=== PATIENT | female | born 1995 | race Caucasian/White ===

== ENCOUNTER → 2017-12-11 16:10 | Outpatient (CLI) | payer BC, SELFPAY ==
[2017-12-11 18:02] LABS: Hematocrit 36.5 % (37-47); Hemoglobin 12.2 g/dl (12.0-15.0); Mean Corp Hgb Conc 33.4 g/gl (32-36); Mean Corpuscular Hgb 32.5 pg (27.0-32.0); Mean Corpuscular Volume 97.3 fL (81-99); Mean Platelet Vol. 10.7 fl (6.2-12.0); Platelet Count 262 K/mm3 (150-450); RBC Distribution Width CV 13.7 % (11.6-14.6); RBC Distribution Width SD 48.1 fl (35.1-43.9); Red Blood Count 3.75 M/mm3 (4.2-5.4); White Blood Count 9.2 K/mm3 (4.4-11.0)
[2017-12-11 18:03] LABS: Scan Indicated on CBC? Y/N NO
[2017-12-11 18:52] LABS: Glucose Challenge Gest 1H 50g 121 mg/dL (70-140)
== END ==
PROVIDERS: Visit Provider Obstetrics & Gynecology
DX: Z34.82 Encounter for supervision of other normal pregnancy, second trimester (principal)
CPT/HCPCS: 36415; 82950; 85027

== ENCOUNTER 2017-12-24 15:43 | Emergency (ER) | payer BC, OTHER, SELFPAY ==
[2017-12-24 15:44] VITALS: BP 106/58; PULSE 81; RESP 17; TEMP 36.4; O2SAT 95; BMI 32.3
--- NOTE | 2017-12-24 16:14 | ED.DCSUM_ITS ---
- ER Visit Summary Date of Service: 12/24/17 Chief Complaint: Nausea and diarrhea History of Present Illness: The patient is a [address] Barrera and Dr. Hopkins. She is a 29 weeks . She reports that she has diarrhea that began 2 days ago. She is having this 4-5 times per day. No blood in her stools or black tarry stools. She has had nausea without vomiting. She reports that she gets cramping epigastric pain approximately 30 minutes after eating and it lasts for approximately 30 minutes. It is 7 out of 10 at worst and she is pain-free currently. States this is not related to fatty food specifically. It occurs with eating anything. Patient has had sick contacts. 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 Has not been camping out of the country. No possible bad food exposure. Does not drink well water. No recent antibiotic use. Patient reports she has had normal movement. No vaginal bleeding or discharge. She has a headache that is 3 out of 10 severity and mild generalized weakness. Physical Examination: Vitals: Stable. Afebrile. General: Well-nourished and well-developed. Head: Normocephalic atraumatic. Neck: Supple, no lymphadenopathy. No JVD. Nontender. Cardiovascular: Regular rate and rhythm. No murmurs. Respiratory: No respiratory distress. Clear to auscultation bilaterally. Abdominal: Gravid uterus. Soft, mild epigastric tenderness to palpation, no right upper quadrant tenderness, nondistended, normal bowel sounds. No guarding , rebound, or peritoneal signs. Back: Nontender. Extremities: Nontender, no edema. Skin: Normal color, no rash. Neurologic: Alert and oriented ?3. Cranial nerves II through XII are intact. Normal strength and sensation. Psych: Normal affect. Test Results: BMP shows a chloride of 111 and CO2 of 20, BUN of 6 and creatinine of 0.43. Emergency Department Course and Treatment: Patient had an IV placed. She was given a liter normal saline. She was given Zofran IV. She has had no vomiting or diarrhea while here. heart tones were 128. Treatment Plan: Patient will be discharged with Zofran and instructed to push fluids. Follow-up with Dr. Hpokins in 1-2 days if not improving. Return to the emergency department for any worsening symptoms. Disposition: To home in improved and stable condition. Impression: 1. Diarrhea. 2. Dehydration. 3. Third trimester . This note was generated with [employer] dictation software. It may contain incorrect words, spelling, and punctuation that were not noted in review of the chart prior to signing ED Disposition - Plan for ED Patient: Chief Complaint: Nausea/Vomiting/Diarrhea Instructions: ED Vomiting Diarrhea Nonspecific Ad Prescriptions: Ondansetron [Zofran Odt] 4 mg PO Q8H PRN PRN #10 tablet PRN Reason: Nausea Referrals: Jay Hopkins [Primary Care Provider] - 1-2 Days if not improving
[2017-12-24] MEDS: Ondansetron 4 MG/2 ML Vial IV (16:18)
[2017-12-24] MEDS: 0.9% Normal Saline 1,000 ML 1000 ML IV (16:18)
[2017-12-24 16:49] LABS: Anion Gap 9 (5-15); BUN 6 mg/dL (7-18); BUN/Creat Ratio 13.9 RATIO (10-20); Calcium,Total 8.1 mg/dL (8.5-10.1); Chloride 111 mmol/L (98-107); Creatinine, Serum 0.43 mg/dL (0.55-1.02); EST Glomerular Filtration Rate 192 mL/min (>60); Est Glom Filt Rate - Afr Amer 232 mL/min (>60); Estimated Creatinine Clearance 160.93 ml/min; Glucose 93 mg/dL (74-106); Potassium 3.8 mmol/L (3.5-5.1); Sodium Level 140 mmol/L (136-145)
[2017-12-24 17:23] VITALS: PULSE 81; O2SAT 97
== END 2017-12-24 17:24 | disposition home or self-care (01) ==
PROVIDERS: Emergency Provider Emergency Medicine; Family Provider Family Medicine; PCP Family Medicine
DX: O99.89 Other specified diseases and conditions complicating pregnancy, childbirth and the puerperium (principal); R19.7 Diarrhea, unspecified; E86.0 Dehydration; Z3A.29 29 weeks gestation of pregnancy
CPT/HCPCS: 80048; 96361; 96374; 99283; J7030; A4216; J2405

== ENCOUNTER → 2018-02-05 16:54 | Outpatient (CLI) | payer BC, OTHER, SELFPAY ==
[2018-02-06 08:34] LABS: Group B Strep DNA By PCR Negative (Negative); Internal Control PASS; Probe Check PASS; Specimen Processing Control PASS
== END ==
PROVIDERS: Visit Provider Obstetrics & Gynecology
DX: Z36.85 Encounter for antenatal screening for Streptococcus B (principal)
CPT/HCPCS: 87081; 87653

== ENCOUNTER 2018-02-15 10:20 | Inpatient (IN) | payer BC, OTHER, SELFPAY ==
[2018-02-15 10:01] VITALS: BMI 35.4
[2018-02-15 10:18] LABS: ROM Internal Control Test YES-OK TO RESULT pt. (Internal QC); ROM Patient Test POSITIVE (Negative)
[2018-02-15] MEDS: Lactated Ringers 1,000 ML 50 ML IV ×3 (10:30→19:04)
[2018-02-15 11:09] LABS: Hematocrit 36.8 % (37-47); Hemoglobin 12.5 g/dl (12.0-15.0); Mean Corpuscular Hgb 32.3 pg (27.0-32.0); Mean Corpuscular Volume 95.1 fL (81-99); Platelet Count 225 K/mm3 (150-450); RBC Distribution Width CV 13.8 % (11.6-14.6); RBC Distribution Width SD 45.6 fl (35.1-43.9); Red Blood Count 3.87 M/mm3 (4.2-5.4); Scan Indicated on CBC? Y/N NO; White Blood Count 9.1 K/mm3 (4.4-11.0)
[2018-02-15] MEDS: Oxytocin 30 units/NS 500 ml 30 UNITS/500 ML IV.SOLN IV (12:05)
--- NOTE | 2018-02-15 16:40 | PCM.PN.BLA ---
Progress Note LABOR PROGRESS NOTE Sitting up for epidural AVSS Pitocin at 12 mIU/min EFM: 130-140s avg variability. Accels. Category I tracing IUPC placed. UC's approx q 2-3 min CX: /-2 per RN last check A/P: 37 2/7 wk SROM. Pitocin induction after SROM. Epidural placed. Continue pitocin per protocol. Anticipate
[2018-02-15] MEDS: fentaNYL-bupivacaine (epidural) 100 ML BAG EPIDURAL ×2 (16:42→20:39)
[2018-02-15] MEDS: 0.9% Saline Lock 10 ML Syringe IV (19:44)
[2018-02-15] MEDS: Ondansetron 4 MG/2 ML Vial IV (19:44)
--- NOTE | 2018-02-15 19:56 | PCM.PN.BLA ---
Progress Note LABOR PROGRESS NOTE Comfortable w/ epidural. First one one-sided and had to be replaced. This one working well. AVSS Pitocin at 10 mIU/min EFM 130-140s avg variability. Accels. Category I tracing UCs q 2-3 mins. some coupling and spacing noted CX; 5-6 at approx 1900 A/P: 37 2/7 wk SROM. Pitocin induction. Early active labor. continue pitocin. Anticipate .
--- NOTE | 2018-02-15 22:18 | PCM.PN.BLA ---
Progress Note LABOR PROGRESS NOTE Epidural in place comfortable. Sitting up high in bed AVSS Pitocin induction after SROM EFM 120-130s avg variability. Accels. UCs q 2-3 mins CX: anterior lip, 90/+1 station A/P: 37 2/7 wk SROM. Pitocin induction. UCs adequate Category I tracing. Adequate progress Continue labor.
[2018-02-16] VITALS (25 sets, daily range): BP systolic 105–155; BP diastolic 51–96; PULSE 86–110; RESP 16–107; TEMP 36.7–37.3; O2SAT 96–107
[2018-02-16] MEDS: fentaNYL-bupivacaine (epidural) 100 ML BAG EPIDURAL (01:35)
[2018-02-16] MEDS: Lactated Ringers 1,000 ML 50 ML IV (02:24)
[2018-02-16] MEDS: Mag Hydrox/Al Hydrox/Simeth 30 ML UDC PO (02:24)
--- NOTE | 2018-02-16 05:07 | PCM.DCCSEC ---
Discharge Diet: No Restrictions Discharge Activity: May not drive while taking narcotic pain medications., May Shower, May Take a Tub Bath May resume sexual activity in: 4-6 weeks Lifting Restrictions: 20 pounds Additional Activity Instructions:: Nothing in the vagina for 4-6 weeks. You may return to work/school in 6 weeks. Change Dressing in (Days):: 4 Remove Dressing in (days):: 4 Cleanse incision/area with: Soap & Water, Keep Dressing Clean & Dry Additional Instructions: If you experience any of the following, contact your healthcare provider. Bleeding that soaks a pad every hour for 2 hours Fever 100.4 or higher Unrelieved incision or abdominal pain Swelling, redness, discharge or bleeding from your incision Problems urinating (including inability to urinate or burning while urinating). Visual changes Severe headache Flu-like symptoms Pain or redness in one of both of your breasts Pain, warmth, tenderness or swelling in your legs, especially the calf area Frequent nausea and vomiting Symptoms of depression or anxiety If you experience any of the following, call 911 or go to the nearest Emergency Room. Chest pain Problems breathing Seizure activity Partial or complete paralysis of a body part, slurred speech, weakness or drooping of the face, or a sudden inability to walk or hold your balance Allergies/Adverse Reactions: Allergies No Known Allergies Allergy (Verified 12/24/17 15:47) Medications to take at Discharge Acetaminophen [Tylenol Tablet] 325 - 650 mg PO Q4H PRN PRN tablet 02/16/18 Docusate Sodium [Colace] 100 mg PO BID PRN PRN #30 cap 02/16/18 Naproxen [Naprosyn] 250 - 500 tab PO TID PRN #30 tab 02/16/18 Oxycodone [Oxyir] 5 - 10 mg PO Q6H PRN PRN 7 Days #28 tablet 02/16/18 The following prescriptions were given: Oxycodone [Oxyir] 5 - 10 mg PO Q6H PRN PRN 7 Days #28 tablet PRN Reason: Mod-Severe Pain (-08/06) Docusate Sodium [Colace] 100 mg PO BID PRN PRN #30 cap PRN Reason: Constipation Naproxen [Naprosyn] 250 - 500 tab PO TID PRN #30 tab PRN Reason: Mild-Mod Pain (1-5/10) Follow-Up: Call to make an appointment with your doctor for an incision check in 1-2 weeks. You will also need a 6 week post- follow up appointment. Please Follow Up With: Brandon Barrera MD - [phone] When: Call to make an appointment for an incision check in 2 weeks. Primary Care Physician: Jay Hopkins [Primary Care Provider] - Proposed Discharge Date: 02/19/18
--- NOTE | 2018-02-16 05:13 | DCINST_ITS ---
Discharge Diet: No Restrictions Discharge Activity: May not drive while taking narcotic pain medications., May Shower, May Take a Tub Bath May resume sexual activity in: 4-6 weeks Lifting Restrictions: 20 pounds Additional Activity Instructions:: Nothing in the vagina for 4-6 weeks. You may return to work/school in 6 weeks. Change Dressing in (Days):: 4 Remove Dressing in (days):: 4 Cleanse incision/area with: Soap & Water, Keep Dressing Clean & Dry Additional Instructions: If you experience any of the following, contact your healthcare provider. * Bleeding that soaks a pad every hour for 2 hours * Fever 100.4 or higher * Unrelieved incision or abdominal pain * Swelling, redness, discharge or bleeding from your incision * Problems urinating (including inability to urinate or burning while urinating) . * Visual changes * Severe headache * Flu-like symptoms * Pain or redness in one of both of your breasts * Pain, warmth, tenderness or swelling in your legs, especially the calf area * Frequent nausea and vomiting * Symptoms of depression or anxiety If you experience any of the following, call 911 or go to the nearest Emergency Room. * Chest pain * Problems breathing * Seizure activity * Partial or complete paralysis of a body part, slurred speech, weakness or drooping of the face, or a sudden inability to walk or hold your balance Allergies/Adverse Reactions: Allergies No Known Allergies Allergy (Verified 12/24/17 15:47) Medications to take at Discharge Acetaminophen [Tylenol Tablet] 325 - 650 mg PO Q4H PRN PRN tablet 02/16/18 Docusate Sodium [Colace] 100 mg PO BID PRN PRN #30 cap 02/16/18 Naproxen [Naprosyn] 250 - 500 tab PO TID PRN #30 tab 02/16/18 Oxycodone [Oxyir] 5 - 10 mg PO Q6H PRN PRN 7 Days #28 tablet 02/16/18 The following prescriptions were given: Oxycodone [Oxyir] 5 - 10 mg PO Q6H PRN PRN 7 Days #28 tablet PRN Reason: Mod-Severe Pain (-08/06) Docusate Sodium [Colace] 100 mg PO BID PRN PRN #30 cap PRN Reason: Constipation Naproxen [Naprosyn] 250 - 500 tab PO TID PRN #30 tab PRN Reason: Mild-Mod Pain (-03/06) Follow-Up: Call to make an appointment with your doctor for an incision check in 1-2 weeks. You will also need a 6 week post- follow up appointment. Please Follow Up With: Brandon Barrera MD - [phone] When: Call to make an appointment for an incision check in 2 weeks. Primary Care Physician: Jay Hopkins [Primary Care Provider] - Proposed Discharge Date: 02/19/18
--- NOTE | 2018-02-16 05:14 | PCM.PN.BLA ---
Progress Note LABOR PROGRESS NOTE Complete and pushing since approx -00:30 AVSS Pitocin induction after SROM EFM : category 1 tracing. 130-140s accels. UCs q 2-3 mins, with some coupling noted Cervix: complete. Vtx remains at -1 station with caput, direct OP. Vaginal starks and perineum edematous. A/P: 37 3/7 wk EGA. CPD. Category I tracing. Advised C section for CPD. Failure to descend. No further pushing planned. OB dept aware, nursing, Anesthesia. Will proceed LUIS ENRIQUE to C/S in OR two. Personnel in OR one at present for other C/S. Pitocin off. Prep for surgery to be done.
[2018-02-16] MEDS: Cefazolin 2 GM in 0.9% Normal Saline 100 ML IV (06:01)
[2018-02-16] MEDS: Oxytocin 30 units/NS 500 ml 30 UNITS/500 ML IV.SOLN 167 UNITS IV (06:22)
[2018-02-16] MEDS: Methylergonovine 0.2 MG/ML Ampul IM (06:24)
[2018-02-16] MEDS: Ketorolac 30 MG/ML Syringe IV ×3 (06:50→18:19)
[2018-02-16] MEDS: Lactated Ringers 1,000 ML 100 ML IV (08:30)
--- NOTE | 2018-02-16 16:04 | PCM.OP.BLANK ---
Operative Report Date of Procedure: 02/16/18 - 37 2/7 wk labor. CPD PROCEDURE: Primary C section Preoperative diagnosis: 37 2/7 wk EGA , labor Cephalopelvic disproportion Postop diagnosis: 37 2/7 wk EGA , labor Cephalopelvic disproportion Anesthesia: Epidural, Angeles Jernigan MD Surgeon: Clarisse Hoskins MD Cruise Agent: NESTOR Deng EBL 600 cc Complications: none Drains: Jama draining clear yellow urine Fluids: replacement LR Findings: At amniotomy, clear fluid was noted. Mcgowan viable male in vertex presentation deeply wedged into maternal pelvis. Apgars 8/9, Baby weight: 7# 1 oz There was a normal appearing uterus, fallopian tubes and ovaries bilaterally. PATH: Routine cord gases sent Narrative account: After the risks, benefits and alternatives of the procedure were reviewed with the patient, informed consent was obtained. The patient was taken to the Operating room with an IV running, an epidural catheter in place and Jama catheter in place. She was positioned on the operating table in dorsal supine position with leftward displacement of the uterus. She was briefly frog-legged for vaginal vault prep, and then repositioned to dorsal supine position with leftward displacement of the uterus, and prepped and draped in the usual sterile fashion. Once the epidural was deemed adequate, a Pfannenstiel skin incision was created using the knife . The incision was carried down to the rectus fascia using the knife. The fascia was nicked in the midline. The fascial incision was extended bilaterally using curved Moreno scissors. The superior aspect of the fascial incision was grasped with Padmini clamps and tented up and the underlying rectus abdominal muscles were dissected free. In a similar manner, the inferior aspect of the facial incision was grasped with Padmini clamps tented up and the underlying rectus abdominal muscles were dissected free. The rectus abdominis muscles were in the midline and the peritoneum was identified and entered by blunt dissection high in the incision. The peritoneum was stretched laterally and a bladder blade was inserted. The rectus abdominis muscles were very tight and a bandage scissors was used to divide the R rectus abdominis muscle further. The uterine incision was then created using Metzenbaum scissors. The operators fingertips were used to extend the uterine incision by blunt dissection in a caudad- cephalad orientation . Clear fluid was noted at amniotomy. The vertex was then delivered atraumatically through the incision with the aid of a nurse applying pressure from below. (The vaginal starks and introitus were very edematous, making this step more challenging). The OP and nares were bulb suctioned on the abdomen. There was no nuchal cord. She shoulders delivered easily. The cord was clamped x two and cut. The baby was initially with poor tone, but responded immediately to stimulation. He was handed off to the nurse awaiting delivery after briefly showing him to his parents. The placenta was then delivered. The uterus was exteriorized and cleared of clots and debris . The uterine incision was repaired with 1 Vicryl in a running locked fashion. A second imbricating layer was then placed, using 1 Monocryl in running nonlocked fashion. Excellent hemostasis was noted. At this point the uterus , fallopian tubes and ovaries were returned to the abdominal cavity. The gutters were cleared of clots and debris and the uterine incision inspected. Excellent hemostasis was noted. Jared was sprayed along the uterine incision for continued hemostasis. The peritoneal edges and rectus abdominis muscles were reapproximated in the midline using vertical mattress stitches and figure of eight stitches of 1 Vicryl . Excellent hemostasis was noted at the subfascial space Jared was dusted along this layer also. The fascia was closed in a running nonlocked fashion with Strattofix suture. The Subcutaneous fatty tissue was Bovie cauterized as needed for hemostasis. This layer was then reapproximated with a single layer of running 3-0 Vicryl to eliminate space. The skin edges were closed in a Subcuticular stitch of 4-0 Vicryl. The incision was cleansed. Cavilon, Steristrips, and a Mepilex dressing were applied to the skin . The patient was then transferred to the recovery room bed in stable condition after tolerating the procedure well. Sponge, lap, needle and instrument counts correct times two. Medications given preop and intraoperatively included: Ancef 2 gm given nascar pit crew person to the operating room. The patient also received Pitocin given IV after cord clamp, and Toradol 30 mg IV times one. Methergine 0.2 mg IM was given in the R thigh due to mild uterine atony noted of the lower uterine segment (patient had been on Pitocin during labor). The mild uterine atony responded, to bimanual massage, IV Pitocin and the Methergine give. For a complete listing of medications given preop and intraoperatively, please see the anesthesia record.
--- NOTE | 2018-02-16 16:16 | OP.PCM_ITS ---
Operative Report Date of Procedure: 02/16/18 - 37 2/7 wk labor. CPD PROCEDURE: Primary C section Preoperative diagnosis: 37 2/7 wk EGA , labor Cephalopelvic disproportion Postop diagnosis: 37 2/7 wk EGA , labor Cephalopelvic disproportion Anesthesia: Epidural, Angeles Jernigan MD Surgeon: Clarisse Hoskins MD Laboratory Veterinarian: NESTOR Deng EBL 600 cc Complications: none Drains: Jama draining clear yellow urine Fluids: replacement LR Findings: At amniotomy, clear fluid was noted. Mcgowan viable male in vertex presentation deeply wedged into maternal pelvis. Apgars 8/9, Baby weight: 7 # 1 oz There was a normal appearing uterus, fallopian tubes and ovaries bilaterally. PATH: Routine cord gases sent Narrative account: After the risks, benefits and alternatives of the procedure were reviewed with the patient, informed consent was obtained. The patient was taken to the Operating room with an IV running, an epidural catheter in place and Jama catheter in place. She was positioned on the operating table in dorsal supine position with leftward displacement of the uterus. She was briefly frog- legged for vaginal vault prep, and then repositioned to dorsal supine position with leftward displacement of the uterus, and prepped and draped in the usual sterile fashion. Once the epidural was deemed adequate, a Pfannenstiel skin incision was created using the knife . The incision was carried down to the rectus fascia using the knife. The fascia was nicked in the midline. The fascial incision was extended bilaterally using curved Moreno scissors. The superior aspect of the fascial incision was grasped with Padmini clamps and tented up and the underlying rectus abdominal muscles were dissected free. In a similar manner, the inferior aspect of the facial incision was grasped with Padmini clamps tented up and the underlying rectus abdominal muscles were dissected free. The rectus abdominis muscles were in the midline and the peritoneum was identified and entered by blunt dissection high in the incision. The peritoneum was stretched laterally and a bladder blade was inserted. The rectus abdominis muscles were very tight and a bandage scissors was used to divide the R rectus abdominis muscle further. The uterine incision was then created using Metzenbaum scissors. The operators fingertips were used to extend the uterine incision by blunt dissection in a caudad- cephalad orientation . Clear fluid was noted at amniotomy. The vertex was then delivered atraumatically through the incision with the aid of a nurse applying pressure from below. (The vaginal starks and introitus were very edematous, making this step more challenging). The OP and nares were bulb suctioned on the abdomen. There was no nuchal cord. She shoulders delivered easily. The cord was clamped x two and cut. The baby was initially with poor tone, but responded immediately to stimulation. He was handed off to the nurse awaiting delivery after briefly showing him to his parents. The placenta was then delivered. The uterus was exteriorized and cleared of clots and debris . The uterine incision was repaired with 1 Vicryl in a running locked fashion. A second imbricating layer was then placed, using 1 Monocryl in running nonlocked fashion. Excellent hemostasis was noted. At this point the uterus , fallopian tubes and ovaries were returned to the abdominal cavity. The gutters were cleared of clots and debris and the uterine incision inspected. Excellent hemostasis was noted. Jared was sprayed along the uterine incision for continued hemostasis. The peritoneal edges and rectus abdominis muscles were reapproximated in the midline using vertical mattress stitches and figure of eight stitches of 1 Vicryl . Excellent hemostasis was noted at the subfascial space Jared was dusted along this layer also. The fascia was closed in a running nonlocked fashion with Strattofix suture. The Subcutaneous fatty tissue was Bovie cauterized as needed for hemostasis. This layer was then reapproximated with a single layer of running 3-0 Vicryl to eliminate space. The skin edges were closed in a Subcuticular stitch of 4-0 Vicryl. The incision was cleansed. Cavilon, Steristrips, and a Mepilex dressing were applied to the skin . The patient was then transferred to the recovery room bed in stable condition after tolerating the procedure well. Sponge, lap, needle and instrument counts correct times two. Medications given preop and intraoperatively included: Ancef 2 gm given complex care nurse practitioner to the operating room. The patient also received Pitocin given IV after cord clamp, and Toradol 30 mg IV times one. Methergine 0.2 mg IM was given in the R thigh due to mild uterine atony noted of the lower uterine segment ( patient had been on Pitocin during labor). The mild uterine atony responded, to bimanual massage, IV Pitocin and the Methergine give. For a complete listing of medications given preop and intraoperatively, please see the anesthesia record.
--- NOTE | 2018-02-16 17:49 | NURSING ---
pericare, labial edema. ice applied
[2018-02-16] MEDS: 0.9% Saline Lock 10 ML Syringe IV (18:19)
[2018-02-17] VITALS (9 sets, daily range): BP systolic 102–116; BP diastolic 57–64; PULSE 83–108; RESP 16–20; TEMP 36.2–38.4; O2SAT 98–100
[2018-02-17] MEDS: Lactated Ringers 1,000 ML 100 ML IV (00:31)
[2018-02-17] MEDS: Ketorolac 30 MG/ML Syringe IV ×3 (00:31→12:51)
[2018-02-17 06:04] LABS: Hemoglobin 9.6 g/dl (12.0-15.0); Mean Corp Hgb Conc 33.1 g/gl (32-36); Mean Corpuscular Hgb 32.1 pg (27.0-32.0); Mean Platelet Vol. 10.5 fl (6.2-12.0); Platelet Count 190 K/mm3 (150-450); RBC Distribution Width CV 14.9 % (11.6-14.6); RBC Distribution Width SD 51.8 fl (35.1-43.9); Red Blood Count 2.99 M/mm3 (4.2-5.4); White Blood Count 16.6 K/mm3 (4.4-11.0)
[2018-02-17 06:21] LABS: Scan Indicated on CBC? Y/N NO
--- NOTE | 2018-02-17 07:43 | PCM.PN.OB ---
Subjective: POD#1 Primary C/S CPD Doing well. Breast and bottle feeding. Baby is not latching on well. Hopes to continue to try nursing. - Physical Exam General: Alert, Oriented x3, Cooperative, No apparent distress HEENT: Atraumatic, EOMI Neck: Supple Abdomen: Soft - Fundus firm minimally tender c/w postop status at approx 2 cm inferior to umbilicus Skin: Incision - CDI. Mepilex w/o shadow drainage. Neurological: Cranial nerves II-XII grossly intact Psych/Mental Status: Normal Affect Vital Signs Temp Pulse Resp BP Pulse Ox 98.7 F 90 18 110/64 100 02/17/18 04:00 02/17/18 06:00 02/17/18 06:00 02/17/18 04:00 02/17/18 06:00 Oxygen Delivery Method Room Air Weight: 88 kg Body Mass Index (BMI) 35.4 Intake and Output for Last 24 Hours 02/15/18 02/16/18 02/17/18 23:59 23:59 23:59 Intake Total 2115 / 2115 3597 / 3597 877 / 877 Output Total 1300 / 1300 1100 / 1100 1900 / 1900 Balance 815 / 815 2497 / 2497 -1023 / -1023 Laboratory Tests Past 24 Hrs 02/17/18 05:40 WBC 16.6 H RBC 2.99 L Hgb 9.6 L Hct 29.0 L MCV 97.0 MCH 32.1 H MCHC 33.1 RDW 14.9 H RDW Differential 51.8 H Plt Count 190 MPV 10.5 Medical Necessity - Tobacco Use Smoking Status: Never smoker Assessment/Plan POD#1 Primary C section CPD Stable postop. Inc diet and activity as tolerated. IV to saline lock. Jama out for voiding trial May shower. continue routine postop care.
[2018-02-17] MEDS: Senna/Docusate Sodium 1 Tablet PO (08:31)
[2018-02-17] MEDS: Ferrous Sulfate 325 MG Tablet PO ×2 (08:31→18:07)
[2018-02-17] MEDS: Acetaminophen 500 MG Tablet 1000 MG PO (11:09)
[2018-02-17] MEDS: 0.9% Saline Lock 10 ML Syringe IV (12:51)
--- NOTE | 2018-02-17 12:59 | NURSING ---
agree with student's assessment.
--- NOTE | 2018-02-17 14:10 | RAD_ITS ---
STUDY: X-RAY CHEST REASON FOR EXAM: Female, 22 years old. had c section yesterday and now has a fever TECHNIQUE: Frontal and lateral views of the chest. COMPARISON: None. FINDINGS: The lungs are clear and expanded. There is no demonstrated pleural abnormality. Normal size heart. Normal mediastinum and terrence. Normal visualized pulmonary arteries. Normal visualized aortic arch and descending thoracic aorta. Normal visualized thoracic spine. Normal visualized ribs, clavicles, and shoulders. There is no demonstrated abnormality of the visualized soft tissue structures of the upper abdomen. RAD/Chest PA and Lateral IMPRESSION: Normal x-ray examination of the chest. Electronically Signed: Cj Shirley MD at 16:49 EDT , Service support ,
[2018-02-17 14:13] LABS: Absolute Lymphocyte Count 1.17 X10^3/ul (0.83-4.51); Absolute Neutrophil Count 14.8 X10^3/uL (2.0-7.7); Basophil# 0.02 X10^3/uL; Basophil% 0.1 % (0-1); Eosinophil# 0.07 X10^3/uL; Eosinophils% 0.4 % (0-5); Hematocrit 28.7 % (37-47); Hemoglobin 9.5 g/dl (12.0-15.0); Lymphocyte # 1.17 X10^3/ul (4.0); Lymphocyte % 6.9 % (19-41); Mean Corp Hgb Conc 33.1 g/gl (32-36); Mean Corpuscular Hgb 32.4 pg (27.0-32.0); Mean Platelet Vol. 10.9 fl (6.2-12.0); Monocyte# 0.83 X10^3/uL; Monocyte% 4.9 % (0-10); Neutrophil # 14.81 X10^3/uL (2.7-7.7); Neutrophil % 87.2 % (47-70); POSITIVE COUNT NO; POSITIVE DIFFERENTIAL NO; POSITIVE MORPHOLOGY NO; Platelet Count 209 K/mm3 (150-450); RBC Distribution Width CV 14.5 % (11.6-14.6); RBC Distribution Width SD 48.5 fl (35.1-43.9); Red Blood Count 2.93 M/mm3 (4.2-5.4)
[2018-02-17] MEDS: Naproxen 250 MG Tablet PO (18:07)
[2018-02-18] MEDS: Acetaminophen 500 MG Tablet 1000 MG PO (00:15)
[2018-02-18 01:40] VITALS: BP 100/55; PULSE 79; RESP 18; TEMP 36.4; O2SAT 97
[2018-02-18] MEDS: oxyCODONE 5 MG Tablet PO (06:19)
[2018-02-18 08:00] VITALS: BP 101/61; PULSE 80; RESP 16; TEMP 36.6
--- NOTE | 2018-02-18 08:08 | PN.OBGYN_ITS ---
Subjective: POD#2 Doing well. One temp yesterday after Toradol given. No further Toradol and no further temps . Breast feeding. no concerns voiced. Would like to go home today if no further temps and baby doing well/discharged. Objective: Lying in bed, NAD - Physical Exam General: Alert, Oriented x3, Cooperative, No apparent distress HEENT: Atraumatic, EOMI Neck: Supple Abdomen: Soft - Fundus firm minimally tender c/w postop status at 2 cm inferior to umbilicus Skin: Incision - CDI. no evidence of infection. Triangular shaped area inferior to umbilicus and above insion with faint erythema (? evolving ecchymosis?) also two areas of very faint erythema at far sides of abdomen, lateral to the incision both sides. Neurological: Cranial nerves II-XII grossly intact Psych/Mental Status: Normal Affect Vital Signs Temp Pulse Resp BP Pulse Ox 97.6 F L 79 18 100/55 L 97 02/18/18 01:40 02/18/18 01:40 02/18/18 01:40 02/18/18 01:40 02/18/18 01:40 Oxygen Delivery Method Room Air Weight: 88 kg Body Mass Index (BMI) 35.4 Intake and Output for Last 24 Hours 02/16/18 02/17/18 02/18/18 23:59 23:59 23:59 Intake Total 3597 / 3597 877 / 877 Output Total 1100 / 1100 2900 / 2900 Balance 2497 / 2497 -2022 / -2022 Laboratory Tests Past 24 Hrs 02/17/18 13:40 WBC 17.0 H RBC 2.93 L Hgb 9.5 L Hct 28.7 L MCV 98.0 MCH 32.4 H MCHC 33.1 RDW 14.5 RDW Differential 48.5 H Plt Count 209 MPV 10.9 Immature Gran % (Auto) 0.500 Neut % (Auto) 87.2 H Lymph % (Auto) 6.9 L [place] % (Auto) 4.9 Eos % (Auto) 0.4 Baso % (Auto) 0.1 Absolute Neuts (auto) 14.8 H Absolute Lymphs (auto) 1.17 Total Counted Not Reportable Medical Necessity - Tobacco Use Smoking Status: Never smoker Assessment/Plan POD#2 Primary C section CPD Stable postop. One single temp yesterday after Toradol given . exam with incision CDI. small area of faint erythema inferior to umbilicus. Possible evolving ecchymosis. CXR NAD. WBCs stable on recheck UA, C and S pending. Work up negative. AVSS this am. Possible drug reaction? Watch temps today and if stable no fevers, OK to dischg would like to go home today . Advised OK to dischg if no further temps If D/C: f/u in 1-2 wk for postop check in office , prn sooner. Pt to watch for inc redness, irritation of incision and for temps at home. Contact ofc if any suspicion of wound infection.
--- NOTE | 2018-02-18 08:10 | PCM.DC.SUM ---
Discharge Date and Diagnosis Date of Admission: 02/15/18 - labor Date of Discharge: 02/18/18 - S/P primary C/S for CPD Hospital Course and Treatment Operations: - - Induction of labor after SROM. Primary C/S for CPD. Summary of Care Provided: The patient is a 22 year old female presents at 37 2/7 wk EGA with SROM. Admitted for labor. Pitocin induction started. Epidural placed per pt request. Went on to complete and no further descent with pushing for 4-5 hrs. Delivery: [place] viable male in vertex presentation deeply wedged into maternal pelvis. Apgars 8/9, Baby weight: 7# 1 oz There was a normal appearing uterus, fallopian tubes and ovaries bilaterally. Postop course complicated by single temp of 101.1 degrees. All workup negative and thought due to drug reaction after Toradol dose given. No further Toradol and no further temps noted. Pt requested dischg on POD#2 Dischg home as requested so long as remains afebrile RTO in 1-2 wk for opstop incision check, Dischg instructions given Discharge Diet: No Restrictions Discharge Activity: May not drive while taking narcotic pain medications., May Shower, May Take a Tub Bath May resume sexual activity in: 4-6 weeks Additional Activity Instructions:: Nothing in the vagina for 4-6 weeks. You may return to work/school in 6 weeks. Change Dressing in (Days):: 4 Remove Dressing in (days):: 4 Cleanse incision/area with: Soap & Water, Keep Dressing Clean & Dry Home Medications: Medications to take at Discharge Acetaminophen [Tylenol Tablet] 325 - 650 mg PO Q4H PRN PRN tablet 02/16/18 Docusate Sodium [Colace] 100 mg PO BID PRN PRN #30 cap 02/16/18 Naproxen [Naprosyn] 250 - 500 tab PO TID PRN #30 tab 02/16/18 Oxycodone [Oxyir] 5 - 10 mg PO Q6H PRN PRN 7 Days #28 tablet 02/16/18 Following Prescrptions Were Given to Patient: Oxycodone [Oxyir] 5 - 10 mg PO Q6H PRN PRN 7 Days #28 tablet PRN Reason: Mod-Severe Pain (-08/06) Docusate Sodium [Colace] 100 mg PO BID PRN PRN #30 cap PRN Reason: Constipation Naproxen [Naprosyn] 250 - 500 tab PO TID PRN #30 tab PRN Reason: Mild-Mod Pain (-03/06) Other Amb Orders: Electric breast pump Time Frame: 1 Year, Location: None Selected Primary Care Physician: Jay Hopkins [Primary Care Provider] - Please Follow Up With: Brandon Barrera MD - [phone] When: Call to make an appointment for an incision check in 2 weeks. Medical Necessity - Tobacco Use Smoking Status: Never smoker Meaningful Use Info Meaningful Use Diagnoses (Choose all that apply): None applicable
[2018-02-18] MEDS: Naproxen 250 MG Tablet PO (09:29)
[2018-02-18] MEDS: Ferrous Sulfate 325 MG Tablet PO (09:29)
[2018-02-18] MEDS: Senna/Docusate Sodium 1 Tablet PO (09:30)
[2018-02-18 12:00] VITALS: BP 104/65; PULSE 95; RESP 16; TEMP 36.3
== END 2018-02-18 13:00 | disposition home or self-care (01) | DRG 766 ==
LOC: WPOUT 10:26
PROVIDERS: Admitting Provider Obstetrics & Gynecology; Family Provider Family Medicine; PCP Family Medicine; Visit Provider Obstetrics & Gynecology
DX: O33.9 Maternal care for disproportion, unspecified (principal); O32.4XX0 Maternal care for high head at term, not applicable or unspecified; O42.02 Full-term premature rupture of membranes, onset of labor within 24 hours of rupture; O9A.23 Injury, poisoning and certain other consequences of external causes complicating the puerperium; R50.2 Drug induced fever; T39.8X5A Adverse effect of other nonopioid analgesics and antipyretics, not elsewhere classified, initial encounter; Y92.230 Patient room in hospital as the place of occurrence of the external cause; Z3A.37 37 weeks gestation of pregnancy; Z37.0 Single live birth
CPT/HCPCS: 59025; 59050; 71046; 84112; 85025; 85027; 86850; 86900; 87086; 99218; J7120; A4216; G0378; J2405

== ENCOUNTER 2018-03-07 19:12 | Emergency (ER) | payer BC, OTHER, SELFPAY ==
[2018-03-07 19:12] VITALS: BP 124/70; PULSE 105; RESP 20; TEMP 37.4; O2SAT 94; BMI 30.7
[2018-03-07] MEDS: 0.9% Normal Saline 1,000 ML 1000 ML IV (19:59)
[2018-03-07] MEDS: Acetaminophen 500 MG Tablet 1000 MG PO (19:59)
[2018-03-07 20:15] LABS: Hematocrit 29.5 % (37-47); Hemoglobin 9.6 g/dl (12.0-15.0); Mean Corp Hgb Conc 32.5 g/gl (32-36); Mean Corpuscular Hgb 30.6 pg (27.0-32.0); Mean Corpuscular Volume 93.9 fL (81-99); Mean Platelet Vol. 10.1 fl (6.2-12.0); Platelet Count 418 K/mm3 (150-450); RBC Distribution Width CV 13.9 % (11.6-14.6); RBC Distribution Width SD 46.1 fl (35.1-43.9); Red Blood Count 3.14 M/mm3 (4.2-5.4); White Blood Count 9.9 K/mm3 (4.4-11.0)
[2018-03-07 20:16] LABS: Scan Indicated on CBC? Y/N NO
--- NOTE | 2018-03-07 21:51 | ED.VISSUMM ---
- ER Visit Summary Date of Service: 03/07/18 Chief Complaint: Fever and left breast tenderness History of Present Illness: The patient is a 22 F status post on 02/16/2018. She has been doing well. 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 She has basically been on antibiotic about 24 hours. She denies vomiting or diarrhea. Physical Examination: Well-appearing young female. Vital signs are stable. Current temperature 99. She does not look septic or toxic. No acute distress. HEENT exam unremarkable. Neck nontender no lymphadenopathy. Lungs clear to auscultation bilaterally. Heart regular rhythm rate about 105 no murmur. Chest wall is left upper breast a warmth and tenderness consistent with mastitis. I do not feel any abscess. There is no axillary lymphadenopathy. Abdomen is soft with a well-healed incision dry and clean. It is healing nicely. Normal bowel sounds no peritoneal signs. Moving all 4 extremities. Calves nontender without edema or cords. Neurologically she is awake alert without focal deficits. Test Results: CBC showed a white count 9 H&H 9 and 29 consistent with her anemia from . Emergency Department Course and Treatment: Repeat exam she is doing well at 2152. She is feeling better clinically looks well. I find no reason to admit her. She will follow-up with Dr. Brandon Barrera. Treatment Plan: Fluids and rest. Continue her current antibiotic dicloxacillin. Tylenol Motrin for fever. Disposition: discharge Impression: Left breast mastitis Status post This note was generated with [employer] dictation software. It may contain incorrect words, spelling, and punctuation that were not noted in review of the chart prior to signing ED Disposition - Plan for ED Patient: Chief Complaint: Fever Referrals: Jay Hopkins MD [Primary Care Provider] -
--- NOTE | 2018-03-07 21:54 | ED.DCSUM_ITS ---
- ER Visit Summary Date of Service: 03/07/18 Chief Complaint: Fever and left breast tenderness History of Present Illness: The patient is a 22 F status post on 2017. She has been doing well. 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 She has basically been on antibiotic about 24 hours. She denies vomiting or diarrhea. Physical Examination: Well-appearing young female. Vital signs are stable. Current temperature 99. She does not look septic or toxic. No acute distress. HEENT exam unremarkable. Neck nontender no lymphadenopathy. Lungs clear to auscultation bilaterally. Heart regular rhythm rate about 105 no murmur. Chest wall is left upper breast a warmth and tenderness consistent with mastitis. I do not feel any abscess. There is no axillary lymphadenopathy. Abdomen is soft with a well-healed incision dry and clean. It is healing nicely. Normal bowel sounds no peritoneal signs. Moving all 4 extremities. Calves nontender without edema or cords. Neurologically she is awake alert without focal deficits. Test Results: CBC showed a white count 9 H&H 9 and 29 consistent with her anemia from . Emergency Department Course and Treatment: Repeat exam she is doing well at 2152. She is feeling better clinically looks well. I find no reason to admit her. She will follow-up with Dr. Brandon Barrera. Treatment Plan: Fluids and rest. Continue her current antibiotic dicloxacillin. Tylenol Motrin for fever. Disposition: discharge Impression: Left breast mastitis Status post This note was generated with [employer] dictation software. It may contain incorrect words, spelling, and punctuation that were not noted in review of the chart prior to signing ED Disposition - Plan for ED Patient: Chief Complaint: Fever Referrals: Jay Hopkins MD [Primary Care Provider] -
--- NOTE | 2018-03-07 21:55 | DCINST.ED_ITS ---
ED Disposition - Plan for ED Patient: Chief Complaint: Fever Instructions: ED Breast Infec Referrals: Brandon Barrera MD [STAFF PHYSICIAN] - As soon as possible Additional Instructions: Plenty fluids and rest. Alternate Tylenol Motrin for fever and pain. Continue your current antibiotic. Follow-up with your SENIOR PROPERTY ACCOUNTANT to have this reevaluated.
[2018-03-07 22:00] VITALS: TEMP 36.8; O2SAT 97
== END 2018-03-07 22:01 | disposition home or self-care (01) ==
PROVIDERS: Emergency Provider Emergency Medicine; Family Provider Family Medicine; PCP Family Medicine
DX: N61.0 Mastitis without abscess (principal)
CPT/HCPCS: 85027; 96360; 96361; 99283; J7030; A4216

== ENCOUNTER → 2018-03-25 11:11 | Outpatient (CLI) | payer BC, OTHER, SELFPAY ==
[2018-03-25 14:19] LABS: hCG Titer Quant., Serum < 1 mIU/mL (<9 non-preg)
[2018-03-26 08:43] LABS: Progesterone Level 0.71 ng/mL (See Comment)
== END ==
PROVIDERS: Visit Provider Obstetrics & Gynecology
DX: Z30.014 Encounter for initial prescription of intrauterine contraceptive device (principal)
CPT/HCPCS: 36415; 84144; 84702

== ENCOUNTER → 2019-01-07 16:45 | Outpatient (CLI) | payer OTHER, BC, SELFPAY ==
[2019-01-12 14:44] LABS: HPV Reflexed? NOT INDICATED
== END ==
PROVIDERS: Visit Provider Obstetrics & Gynecology
DX: Z12.4 Encounter for screening for malignant neoplasm of cervix (principal)
CPT/HCPCS: 88175; G0145

== ENCOUNTER → 2019-07-07 12:41 | Outpatient (CLI) | payer OTHER, BC, SELFPAY ==
[2019-06-22 10:00] VITALS: BMI 30.7
--- NOTE | 2019-07-07 12:42 | US_ITS ---
STUDY: ULTRASOUND TRANSVAGINAL CLINICAL: Female, 23 years old. Pelvic pain. History of cysts. TECHNIQUE: Transabdominal and Transvaginal COMPARISON: None. FINDINGS: Normal uterine size measuring 8.7 x 4.4 x 2.9 cm in maximal craniocaudal dimension. There are no myometrial masses. Normal endometrial thickness measuring 3 mm. Endometrial echoes are homogeneous and hyperechoic. There are no endometrial masses, and there is no fluid in the endometrial cavity. Normal uterine cervix. Normal right ovary, measuring 2.9 x 3.0 x 2.3 cm. There is a dominant 2.2 cm cyst. Normal left ovary, measuring 2.1 x 1.8 x 2.0 cm. There are multiple follicles without a dominant cyst. There is no free fluid in the pelvis. Polycystic ovary disease: No. US/Transvaginal Non- IMPRESSION: 2.2 cm cyst of the right ovary. Otherwise unremarkable. Electronically Signed: Ronan Mackey MD at 15:16 EDT , Service support ,
--- NOTE | 2019-07-07 12:42 | US_ITS ---
STUDY: ULTRASOUND TRANSVAGINAL CLINICAL: Female, 23 years old. Pelvic pain. History of cysts. TECHNIQUE: Transabdominal and Transvaginal COMPARISON: None. FINDINGS: Normal uterine size measuring 8.7 x 4.4 x 2.9 cm in maximal craniocaudal dimension. There are no myometrial masses. Normal endometrial thickness measuring 3 mm. Endometrial echoes are homogeneous and hyperechoic. There are no endometrial masses, and there is no fluid in the endometrial cavity. Normal uterine cervix. Normal right ovary, measuring 2.9 x 3.0 x 2.3 cm. There is a dominant 2.2 cm cyst. Normal left ovary, measuring 2.1 x 1.8 x 2.0 cm. There are multiple follicles without a dominant cyst. There is no free fluid in the pelvis. Polycystic ovary disease: No. US/Pelvic (Non ) IMPRESSION: 2.2 cm cyst of the right ovary. Otherwise unremarkable. Electronically Signed: Ronan Mackey MD at 15:16 EDT , Service support ,
== END ==
PROVIDERS: Referring Provider Nurse Practitioner Women's Health; Visit Provider Nurse Practitioner Women's Health
DX: N83.201 Unspecified ovarian cyst, right side (principal); R10.2 Pelvic and perineal pain
CPT/HCPCS: 76830; 76856; 93976

== ENCOUNTER → 2020-10-12 11:48 | Outpatient (CLI) | payer BC, SELFPAY ==
[2019-12-28 10:53] VITALS: BMI 30.7
--- NOTE | 2020-10-12 11:58 | RAD_ITS ---
STUDY: HISTORY OF SEPTOPLASTY. REASON FOR EXAM: Female, 25 years old. Infertility FLUOROSCOPY TIME (if supplied): ( 44 seconds ) minutes/seconds. 4 images were obtained. TECHNIQUE: A hysterosalpingogram was performed by the wound care physician. Imaging was performed. COMPARISON: None. FINDINGS: The uterus is unremarkable. The fallopian tubes are patent bilaterally with free spill. RAD/Salpingogram IMPRESSION: Normal hysterosalpingogram. Electronically Signed: Venu Jones, at 12:50 EST , Service support ,
--- NOTE | 2020-10-14 07:52 | OP.PCM_ITS ---
Problem List (1) Irregular menses Status: Acute Report of Operation Date of Procedure: 10/12/20 Description of Procedure: Preop diagnosis: Infertility Postop diagnosis: Same plus bilateral tubal patency Procedure: Hysterosalpingogram Surgeon: Benita Tilley Implantable devices: None Complications: None Findings: Bilateral tubal patency and normal uterine cavity Operative details: Patient was taken to the x-ray room and was placed on the x- ray table and was in the dorsal lithotomy position. Speculum was placed in the vagina and the cervix prepped with Betadine and the HSG catheter was easily introduced into the uterus and speculum removed. Radiologist was brought in and while pushing radiopaque dye into the uterus via the HSG catheter the radiologist took multiple images and views and confirmed bilateral tubal patency seen. No gross uterine filling defects or abnormalities were seen. All instruments removed from the vagina and the uterus without complication. Patient tolerated the procedure well. Multi Select Codes - Urinary/Genital Urinary/Genital CPT Codes: 28134 HSG/SIS
== END ==
PROVIDERS: Referring Provider Obstetrics & Gynecology; Visit Provider Obstetrics & Gynecology
DX: Z31.9 Encounter for procreative management, unspecified (principal)
CPT/HCPCS: 58340; 74740

== ENCOUNTER → 2020-12-05 12:47 | Outpatient (CLI) | payer BC, SELFPAY ==
[2020-12-05 10:40] VITALS: BMI 33.3
[2020-12-05 13:45] LABS: Amphetamine Urine VISTA NEGATIVE (<1000 ng/mL); Barbiturate Urine VISTA NEGATIVE (< 200 ng/mL); Benzodiazepine Urine VISTA NEGATIVE (< 200 ng/mL); Cocaine Urine VISTA NEGATIVE (< 300 ng/mL); Ecstacy Urine VISTA NEGATIVE (< 500 ng/mL); Methadone Urine VISTA NEGATIVE (< 300 ng/mL); PCP Urine VISTA NEGATIVE (< 25 ng/mL); THC Urine VISTA NEGATIVE (< 50 ng/mL); Vista UDS pH Range 6
[2020-12-07 06:07] LABS: Chlamydia By Nucleic Acid AMP Negative (Negative)
[2020-12-07 12:21] LABS: Gonococcus By Nucleic Acid AMP Negative (Negative)
== END ==
PROVIDERS: Visit Provider Obstetrics & Gynecology
DX: Z34.80 Encounter for supervision of other normal pregnancy, unspecified trimester (principal)
CPT/HCPCS: 80307; 87086; 87491; 87591

== ENCOUNTER → 2021-01-02 14:53 | Outpatient (CLI) | payer BC, SELFPAY ==
[2020-12-06 13:15] VITALS: BMI 33.3
[2021-01-02 15:39] LABS: Absolute Lymphocyte Count 1.94 X10^3/uL (0.83-4.51); Absolute Neutrophil Count 6.7 X10^3/uL (2.0-7.7); Basophil# 0.03 X10^3/uL; Basophil% 0.3 % (0-1); Eosinophil# 0.02 X10^3/uL; Eosinophils% 0.2 % (0-5); Hematocrit 37.9 % (37-47); Hemoglobin 12.8 g/dL (12.0-15.0); Lymphocyte # 1.94 X10^3/ul (4.0); Lymphocyte % 21.1 % (19-41); Mean Corp Hgb Conc 33.8 g/dL (32-36); Mean Corpuscular Hgb 32.2 pg (27.0-32.0); Mean Corpuscular Volume 95.2 fL (81-99); Mean Platelet Vol. 10.5 fl (6.2-12.0); Monocyte# 0.44 X10^3/uL; Monocyte% 4.8 % (0-10); NRBC Flagged by Analyzer 0 % (0-5); Neutrophil # 6.73 X10^3/uL (2.7-7.7); Neutrophil % 73.1 % (47-70); Platelet Count 285 K/mm3 (150-450); RBC Distribution Width CV 12.1 % (11.6-14.6); RBC Distribution Width SD 42.7 fl (35.1-43.9); Red Blood Count 3.98 M/mm3 (4.2-5.4); White Blood Count 9.2 K/mm3 (4.4-11.0)
[2021-01-02 16:07] LABS: Glucose Challenge Gest 1H 50g 105 mg/dL (70-140)
[2021-01-03 09:22] LABS: HIV - WCH Non-Reactive (Nonreactive); Hepatitis B Surface Antigen Non-Reactive (Nonreactive); Hepatitis C Antibody Non-Reactive (Nonreactive); Rubella IgG Reactive (Nonreactive); Syphilis Antibodies Non-reactive
== END ==
PROVIDERS: Referring Provider Obstetrics & Gynecology; Visit Provider Obstetrics & Gynecology
DX: O99.210 Obesity complicating pregnancy, unspecified trimester (principal); Z3A.00 Weeks of gestation of pregnancy not specified
CPT/HCPCS: 36415; 82950; 85025; 86703; 86762; 86803; 86850; 86900; 86901; 87340

== ENCOUNTER → 2021-04-24 14:50 | Outpatient (CLI) | payer BC, SELFPAY ==
[2021-04-03 16:15] VITALS: BMI 34.4
[2021-04-24 15:47] LABS: Absolute Lymphocyte Count 1.69 X10^3/uL (0.83-4.51); Absolute Neutrophil Count 5.9 X10^3/uL (2.0-7.7); Basophil# 0.04 X10^3/uL; Basophil% 0.5 % (0-1); Eosinophil# 0.04 X10^3/uL; Eosinophils% 0.5 % (0-5); Hematocrit 35.1 % (37-47); Hemoglobin 11.7 g/dL (12.0-15.0); Lymphocyte # 1.69 X10^3/ul (0.83-4.51); Lymphocyte % 20.8 % (19-41); Mean Corp Hgb Conc 33.3 g/dL (32-36); Mean Corpuscular Hgb 32.1 pg (27.0-32.0); Mean Corpuscular Volume 96.2 fL (81-99); Mean Platelet Vol. 10.8 fl (6.2-12.0); Monocyte# 0.39 X10^3/uL; Monocyte% 4.8 % (0-10); NRBC Flagged by Analyzer 0 % (0-5); Neutrophil # 5.89 X10^3/uL (2.7-7.7); Neutrophil % 72.3 % (47-70); Platelet Count 236 K/mm3 (150-450); RBC Distribution Width CV 13.2 % (11.6-14.6); RBC Distribution Width SD 46.6 fl (35.1-43.9); Red Blood Count 3.65 M/mm3 (4.2-5.4); White Blood Count 8.1 K/mm3 (4.4-11.0)
[2021-04-24 16:35] LABS: Glucose Challenge Gest 1H 50g 161 mg/dL (70-140)
== END ==
LOC: PAVLAB 14:51 → LAB 15:12
PROVIDERS: Referring Provider Obstetrics & Gynecology; Visit Provider Obstetrics & Gynecology
DX: Z13.1 Encounter for screening for diabetes mellitus (principal)
CPT/HCPCS: 36415; 82950; 85025

== ENCOUNTER → 2021-05-02 07:03 | Outpatient (CLI) | payer BC, SELFPAY ==
[2021-04-24 15:46] VITALS: BMI 34.4
[2021-05-02 07:59] LABS: Glucose GTT-Gestation. Fasting 93 mg/dL (<105)
[2021-05-02 09:21] LABS: Glucose GTT-Gestational 1 Hr 148 mg/dL (<190)
[2021-05-02 12:01] LABS: Glucose GTT-Gestational 3 Hr 144 L (<145)
[2021-05-02 12:03] LABS: Glucose GTT-Gestational 2 Hr 161 mg/dL (<165)
== END ==
PROVIDERS: Referring Provider Obstetrics & Gynecology; Visit Provider Obstetrics & Gynecology
DX: O99.810 Abnormal glucose complicating pregnancy (principal); Z3A.00 Weeks of gestation of pregnancy not specified
CPT/HCPCS: 36415; 82951; 82952

== ENCOUNTER 2021-05-25 12:30 | Outpatient (RCR) | payer BC, SELFPAY ==
[2021-04-24 15:46] VITALS: BMI 34.4
[2021-05-08 15:43] VITALS: BMI 34.4
== END 2021-05-25 23:59 | disposition home or self-care (01) ==
LOC: DC 12:30
PROVIDERS: Visit Provider Obstetrics & Gynecology
DX: O24.419 Gestational diabetes mellitus in pregnancy, unspecified control (principal)
CPT/HCPCS: 97802

== ENCOUNTER → 2021-06-05 13:48 | Outpatient (CLI) | payer BC, SELFPAY ==
[2021-05-22 15:32] VITALS: BMI 34.4
--- NOTE | 2021-06-05 13:49 | US_ITS ---
STUDY: SECOND AND THIRD TRIMESTER OBSTETRICAL ULTRASOUND - LIMITED REASON FOR EXAM: Female, 25 years old . growth. Gestational diabetes. LMP: 10/06/2020. PRIOR ULTRASOUND: None. TECHNIQUE: Transabdominal TECHNICAL QUALITY: Adequate. FINDINGS: There is a single intrauterine fetus. The fetus is in a cephalic presentation. There is demonstrated cardiac activity with a heart rate of 130 bpm. There is a normal amniotic fluid volume. The largest amniotic fluid pocket measures 9 cm. The amniotic fluid index (STEVE) is 28 cm. The placenta is anterior in location and is not low lying. There are Grade 3 placental changes. The cervix measures 3.5 cm in length. BIOMETRY: BPD: 9.51 cm: 38 weeks, 5 days HC: 32.71 cm: 37 weeks, 0 days AC: 32.97 cm: 36 weeks, 6 days FL: 6.54 cm: 33 weeks, 4 days Age by LMP: 34 weeks, 4 days. KATY by LMP: 07/13/2021. age by current US: 36 weeks, 2 days. KATY by current US: 07/01/2021. Estimated weight: 2956 grams, +/- 443 grams, 91 percentile. US/OB Limited With Biometrics IMPRESSION: Single live intrauterine gestation with a mean gestational age of 36 weeks and 2 days. Electronically Signed: Venu Jones MD at 13:42 EDT , Service support ,
== END ==
PROVIDERS: Referring Provider Obstetrics & Gynecology; Visit Provider Obstetrics & Gynecology
DX: O24.419 Gestational diabetes mellitus in pregnancy, unspecified control (principal); Z3A.00 Weeks of gestation of pregnancy not specified
CPT/HCPCS: 76816

== ENCOUNTER → 2021-06-19 17:11 | Outpatient (CLI) | payer BC, SELFPAY | PROVIDERS: Referring Provider Obstetrics & Gynecology; Visit Provider Obstetrics & Gynecology | DX: Z34.80 Encounter for supervision of other normal pregnancy, unspecified trimester (principal) | CPT/HCPCS: 87077; 87081; 87186 ==

== ENCOUNTER 2021-06-22 10:00 | Inpatient (IN) | payer BC, SELFPAY ==
[2021-04-24 15:46] VITALS: BMI 34.4
[2021-06-22] VITALS (14 sets, daily range): BP systolic 97–110; BP diastolic 51–70; PULSE 62–86; RESP 14–18; TEMP 36.2–36.6; O2SAT 96–98; BMI 34.7
[2021-06-22] MEDS: Lactated Ringers 1,000 ML 999 ML IV (10:40)
[2021-06-22 10:58] LABS: Absolute Lymphocyte Count 1.33 X10^3/uL (0.83-4.51); Absolute Neutrophil Count 4.1 X10^3/uL (2.0-7.7); Basophil# 0.01 X10^3/uL; Basophil% 0.2 % (0-1); Eosinophil# 0.02 X10^3/uL; Eosinophils% 0.3 % (0-5); Hematocrit 36.9 % (37-47); Hemoglobin 12.1 g/dL (12.0-15.0); Lymphocyte # 1.33 X10^3/ul (0.83-4.51); Lymphocyte % 22.9 % (19-41); Mean Corp Hgb Conc 32.8 g/dL (32-36); Mean Corpuscular Hgb 31.3 pg (27.0-32.0); Mean Corpuscular Volume 95.6 fL (81-99); Mean Platelet Vol. 11.2 fl (6.2-12.0); Monocyte# 0.29 X10^3/uL; NRBC Flagged by Analyzer 0 % (0-5); Neutrophil % 70.7 % (47-70); Platelet Count 195 K/mm3 (150-450); RBC Distribution Width SD 48.2 fl (35.1-43.9); Red Blood Count 3.86 M/mm3 (4.2-5.4); White Blood Count 5.8 K/mm3 (4.4-11.0)
[2021-06-22] MEDS: Acetaminophen 500 MG Tablet 1000 MG PO ×3 (11:05→23:09)
[2021-06-22 11:16] LABS: Bedside Glucose 68 mg/dL (70-110)
[2021-06-22] MEDS: Sodium Citrate/Citric Acid 30 ML UDC PO (11:46)
[2021-06-22] MEDS: Lactated Ringers 1,000 ML 150 ML IV (11:46)
[2021-06-22] MEDS: Cefazolin 2 GM in 0.9% Normal Saline 100 ML IV (11:46)
--- NOTE | 2021-06-22 12:05 | PCM.HP.BLA ---
History and Physical Date of Admission: 06/22/21 [id number] [place] [address] [phone] OFFICE VISITDate of Service: 06/19/21 MR#:[id number]: THIERNO ZAMUDIOep #:[id number]:[id number] Provider:Dr. Benita Tilley, GABEge/Sex: 25/F [facility] Intake Vital Signs 06/19/21 15:58 Height 5 ft 3 in Weight: 201 lb BMI 35.6 BP 120/70 Intake Visit Reasons: 36WK OB Compensation Supervisor Required: No Is patient in pain?: No Allergies ketorolac [From Toradol] Adverse Reaction (Verified 06/19/21 15:59) Other Medications promethazine 12.5 mg tablet 12.5 mg PO TID PRN #60 tab 11/22/20 [Rx Confirmed 06/19/21] multivitamin no.47-iron fum 27 mg-folate no.1 1 mg-dha 300 mg capsule cap PO 11/29/20 [History Confirmed 06/19/21] famotidine 20 mg tablet 20 mg PO BID #60 tab 02/27/21 [Rx Confirmed 06/19/21] blood-glucose meter #1 ea 05/02/21 [Rx Confirmed 06/19/21] lancets 30 gauge and blood glucose strips combo pack #50 ea 05/02/21 [Rx Confirmed 06/19/21] blood sugar diagnostic #10 ea 05/15/21 [History Confirmed 06/19/21] lancets 28 gauge #100 ea 05/15/21 [History Confirmed 06/19/21] metformin 500 mg tablet 1,000 mg PO BID #120 tab 05/26/21 [Rx Confirmed 06/19/21] sertraline 50 mg tablet See Rx Instructions .ROUTE .COMPLEX #30 tab 06/01/21 [Rx Confirmed 06/19/21] Last Menstral Period: 10/06/20 Zika: Zika virus screening: Negative : No PFSH PFSH Medical History Anxiety macrosomia Gestational diabetes Polyhydramnios affecting Surgical History delivery delivered Family History Mother Endometriosis Social History adopted: No household members: family housing: house number of children: 1 current occupational status: employed current occupation: [employer] Smoking Status: Never smoker second hand exposure: No alcohol intake: current alcohol intake frequency: holidays/special occasions only substance use type: does not use diet: Weight Watchers seatbelt use: always do you feel safe at home: Yes additional social history: [place] [employer] for [employer] Pregancy History 2 Elective abortions Hx Para 1 Spontaneous abortions Hx # Term Pregnancies 1 Ectopic pregnancies Hx # Pregnancies Multiple births # of living children 1 Past Pregnancies Del. Date Name GA/Weeks Outcome Route Bth Weight Infant Gen Labor Lgth Anesthesia Del Locatn Provider FOB 02/16/18 Sea 37 live - full term 7 lbs. 1 oz. [facility] [place] Delivery Date: 02/16/18 CPD; mild uterine atony- pitocin, bimanual massage, methergine Clarisse Rogel HPI 36WK OB Details: THIERNO ZAMUDIO is a 25 year old who presents for routine OB visit. OB Visit KATY Calculator Estimated Delivery Date Method Current WG Current Estimate 07/13/21 LMP (Certain) 36w 6d Expected Delivery Route/Plan plan RLTCS Labor Preferences- CB/BF classes: no labor support person: Arn[place]fo labor intervention preferences: Planned RLTCS 07/06/21 SM pain management options preferred: [] cut cord/dad catch: [] : yes PP control planned: IUD discussed possible routes of delivery and associated risks: [] special requests: [] Specific Issue/Plans flu vaccine: given tdap vaccine: given rhogam: na LARC form signed: yes Problem list reviewed and updated with the most current plan of care details and appropriate orders placed. Relevant counseling for the gestational age provided. Continue routine care and follow up unless otherwise noted in visit notes/problem list details Initial Weight: 182 lb Date EGA Weight BP Urine Prot Glucose FHR FuHt Pres Dilation Effaced St Visit Note 12/05/20 8w 4d 182 lb (+0 oz) 118/76 170 GP - CRL 20mm consistent with LMP 01/02/21 12w 4d 183 lb 2 oz (+1 lb 2 oz) 126/80 Negative Negative 155 GP - no cramping or bleeding. Having episodes of air hunger not alleviated with albuterol. Also has had multiple near syncopal episodes associated with heart racing. 01/30/21 16w 4d 187 lb (+5 lb) 120/82 Negative Negative 150 SM- no vb cramping start pepcid for GERD 02/27/21 20w 4d 188 lb 2 oz (+6 lb 2 oz) 126/78 Negative Negative 150 20 GP - no LOF, VB, DFM, ctx. Anatomy reviewed - needs f/u lip and face views in 2w. Discussed scheduled pepcid BID. 04/03/21 25w 4d 195 lb (+13 lb) 114/72 Negative Negative 145 25 SM- no vb lof some restless legs, no regular ctx. fu anatomy us nl. some increased anxiety. 04/24/21 28w 4d 200 lb (+18 lb) 122/74 Negative Negative 140 28 SM- no vb lof good fm no reuglar ctx message sent to schedule RLTCS 05/08/21 30w 4d 201 lb (+19 lb) 130/70 Negative Negative 145 32 SM- no vb lof good fm no regular ctx SM- no vb lof good fm no regular ctx. discussed increasing anxiety and irritability symptoms. SM- no vb lof good fm no regular ctx. discussed increasing anxiety and irritability symptoms. reviewed BS. 05/22/21 32w 4d 200 lb 4 oz (+18 lb 4 oz) 138/72 Negative Negative 148 33 MH-no VB, LOF. Good FM. Occa BH CTX. Tdap. 06/05/21 34w 4d 202 lb 4 oz (+20 lb 4 oz) 126/66 Negative Negative 125 34 GP - no LOF, VB, DFM, ctx. Denies complaints. 06/19/21 36w 4d 201 lb (+19 lb) 120/70 130 SM- no vb lof good fm no regular ctx discussed early delivery due to polyhydramnios ACOG First Trimester First Trimester: Desire for , Alcohol, Tobacco Cessation, Illicit/Recreational Drug/Substance Use, Intimate Partner Violence, Barriers to care, Unstable Housing, Communication Barriers, Environmental/Work Hazards, Anticipated Course of Care, Toxoplasmosis Precations, Use of Any medications, Sexual activity, Exercise, Dental Care, Sauna/Hot tub use, Seat Belt use, Childbirth classes/Hospital facilities, , Travel, Indications for Ultrasound and Screening for Aneuploidy Second Trimester Second Trimester: Signs and Symptoms of Labor, Selecting a care provider, Reproductive Life Planning & Contreception, Care Planning, Tobacco Cessation, Depression/Anxiety and Intimate Partner Violence Third Trimester Third Trimester: Pain Management Plans, Labor support person(s), Immediate Larc, Movement Monitoring and Infant Feeding Yes ; Discussed Trial of Labor after Counseling and Discussed Circumcision preference Diagnostics Diagnostics Diagnostics: Gest Glucose Tolerance MG/DL Glucose 1 Hr 50 gm 161 mg/dL (70-140) H Hgb 11.7 g/dL (12.0-15.0) L Hct 35.1 % (37-47) L Details: HIV: Urine Culture: Sequential Screen: NIPT Screen: ROS Const Reports system reviewed and no additional complaints, except as documented Card Reports system reviewed and no additional complaints, except as documented Resp Reports system reviewed and no additional complaints, except as documented GI Reports system reviewed and no additional complaints, except as documented and Reports nausea Reports system reviewed and no additional complaints, except as documented Musc Reports system reviewed and no additional complaints, except as documented Exam Const General: cooperative, healthy appearing, comfortable and anxious HENMT Head: normal to inspection Nose: external nose normal Face and sinus: normal facial exam Neck Neck: normal visual inspection, full ROM and no lymphadenopathy Thyroid: thyroid normal Chest Chest palpation & inspection: normal inspection of the chest Resp Effort & Inspection: normal respiratory effort GI Inspection: normal to inspection Palpation: soft and other (gravid uterus) Other: vertex and appropriate size for gestational age Other: Cervical Exam: Extrem General: pedal edema Office Procedures Non-stress Test Non-Stress Test Indications for Monitoring: Yes diabetes Heart Rate Baseline: 130 Heart Rate Variability: minimal Movement: Present Heart Rate Accelerations: Present Decelerations: Absent Contractions: Absent Impression: Yes Reactive Non-Stress Test Category 1 Coding Level of Care Code OB Routine Diagnoses Positive GBS test B95.1 macrosomia O36.60X0 Polyhydramnios affecting O40.9XX0 Gestational diabetes O24.410 Gestational diabetes mellitus control: diet-controlled Trimester: unspecified trimester Syncope R55 Syncope type: unspecified COVID-19 vaccine administered Z23 Scoliosis M41.9 Idiopathic scoliosis type: other Spinal region: unspecified Z3A.34 Weeks of gestation: 34 weeks H/O section Z98.891 Supervision of other normal Z34.80 Anxiety F41.9 CPT Codes Non-Stress Test (41893) Assessment and Plan Assessment and Plan (1) Positive GBS test: Status: Acute (2) macrosomia: Status: Acute (3) Polyhydramnios affecting : Status: Acute Orders: Orders: OB NST 06/19/21 (4) Gestational diabetes: Status: Acute Qualifiers: Gestational diabetes mellitus control: diet-controlled Trimester: unspecified trimester Qualified Code(s): O24.410 - Gestational diabetes mellitus in , diet controlled Comment: US on 06/06 91% wt. Orders: Orders: OB NST 06/19/21 (5) Syncope: Status: Acute Qualifiers: Syncope type: unspecified Qualified Code(s): R55 - Syncope and collapse Comment: Multiple near syncopal episodes as well as episodes of air hunger not alleviated with albuterol. 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 Referral placed to cardiology in [place].- Appointment scheduled for 01/04 at 2:30pm (6) COVID-19 vaccine administered: Status: Acute Comment: Joselito (7) Scoliosis: Status: Acute Qualifiers: Idiopathic scoliosis type: other Spinal region: unspecified Comment: Reports caused difficulty with last delivery. (8) : Status: Acute Qualifiers: Weeks of gestation: 34 weeks Qualified Code(s): Z3A.34 - 34 weeks gestation of Comment: declines genetic and carrier; NL 03/02/21 (9) H/O section: Status: Acute Comment: CPD. Plan RCD. RLTCS 06/22 @ 12 (10) Supervision of other normal : Status: Acute Comment: PRR KATY: 07/13/21 Boy! Atul PC: Sea Spouse: [place] Orders: Orders: Culture, Group B Streptococcus 06/19/21 (11) Anxiety: Status: Acute Comment: was previously on Zoloft Plan Details Other Orders: Orders: POC Urinalysis 2 Dip (Clinic) 06/19/21 UPDATE- I have seen the patient and performed any clinically relevant updates to the history and physical exam. Benita Tilley MD
[2021-06-22] MEDS: Oxytocin 30 units/NS 500 ml 30 UNITS/500 ML IV.SOLN 167 UNITS IV (13:30)
--- NOTE | 2021-06-22 14:03 | EX.PCM.OBRPT ---
Assessment & Plan (1) delivery delivered: COMMENT: RLTCS GDMA2 Poly 37 boy Atul (2) : QUALIFIERS: Weeks of gestation: 34 weeks Qualified Code(s): Z3A.34 - 34 weeks gestation of COMMENT: declines genetic and carrier; NL 03/02/21 (3) H/O section: COMMENT: CPD. Plan RCD. RLTCS 06/22 @ 12 (4) Supervision of other normal : COMMENT: PRR KATY: 07/13/21 Boy! Atul PC: Sea Spouse: Arnulfo (5) Polyhydramnios affecting : (6) Gestational diabetes: QUALIFIERS: Gestational diabetes mellitus control: diet-controlled Trimester: unspecified trimester Qualified Code(s): O24.410 - Gestational diabetes mellitus in , diet controlled COMMENT: US on 06/06 91% wt. (7) Anxiety: COMMENT: was previously on Zoloft (8) macrosomia: (9) Positive GBS test: (10) Syncope: QUALIFIERS: Syncope type: unspecified Qualified Code(s): R55 - Syncope and collapse COMMENT: Multiple near syncopal episodes as well as episodes of air hunger not alleviated with albuterol. 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 Referral placed to cardiology in [place].- Appointment scheduled for 01/04 at 2:30pm (11) COVID-19 vaccine administered: COMMENT: Joselito (12) Scoliosis: QUALIFIERS: Idiopathic scoliosis type: other Spinal region: unspecified COMMENT: Reports caused difficulty with last delivery. (13) H/O depression, currently : Maternal Data Information KATY Calculator Estimated Delivery Date Method Current WG Current Estimate 07/13/21 LMP (Certain) 37w 2d Final KATY Source: LMP Gestational age: 39 Details Operative Information Date of Procedure: 06/23/21 Pre-Operative Diagnosis: uncontrolled GDMA2 polyhydramnios Post-Operative Diagnosis: same Indications for : Repeat Elective (37 weeks due to uncontrolled diabetes) Procedure Type: low transverse signal intelligence analyst #1: ronn Type of Anesthesia: Epidural Special Medications: none Drain: Jama to straight drain Fluids Replaced: crystalloid Findings Description of Procedure: The patient was placed in the dorsal supine position with leftward tilt. Patient was prepped and draped in the normal sterile fashion. Pfannenstiel skin incision was made with the scalpel and carried through to the underlying layer of fascia with the scalpel. Fascia was nicked in the midline and the incision extended laterally. The rectus bellies were dissected off superiorly and inferiorly with out complication both sharply and bluntly. The peritoneum was entered digitally. The incision was stretched and a low transverse uterine incision was made with the scalpel. The 's head was delivered atraumatically followed by the anterior and posterior shoulders without complication the rest of the infant delivered. The cord was clamped and cut and the was handed off to awaiting nurse. The placenta was delivered spontaneously immediately following and was noted to be intact and have a three-vessel cord. The uterus was exteriorized cleared of all clots and debris, and the incision was closed in a double layer closure using #1 Monocryl. The ovaries and fallopian tubes were noted to be within normal limits. The uterus was returned to the maternal abdomen and gutters were cleared of all clots and debris. The peritoneum was closed with 3-0 Monocryl in a running fashion. Gloves were changed prior to fascial closure. Fascia was closed with 0 PDS in a running fashion. Subcutaneous tissue was copiously irrigated and the skin was closed with 3-0 Monocryl in a subcuticular fashion. Mepilex dressing was applied without complication. Patient was taken to recovery in stable condition. It was discussed with the patient that based on the clinical information obtained during this encounter, combined with her history, at this time I would recommend cesareans for future deliveries if further pregnancies are desired. Amniotic Membrane Rupture Type: Artificial Amniotic Fluid Description: Clear Placental Delivery Description: Spontaneous Placenta Disposition: [facility] Cord Vessel Description: 3 Vessels Cord Entanglement: None A Gender: Male Delayed Cord Clamping: Yes Complications Risks of Surgery Discussed w/Patient: Bleeding, Infection, Need for Future C-Sections and Injury to surrounding structure(s) including bowel and bladder Complications: none Admit VTE Documentation VTE Present on Admission: No VTE Mechan Device Prophylaxis: SCD's Procedures Urinary/Genital 52xxx-59xxx: [id number] Delivery [facility]
[2021-06-22 14:36] LABS: Bedside Glucose 72 mg/dL (70-110)
[2021-06-22] MEDS: Ketorolac 10 MG Tablet PO ×2 (14:56→21:01)
[2021-06-22] MEDS: Lactated Ringers 1,000 ML 100 ML IV (16:50)
--- NOTE | 2021-06-22 17:05 | NURSING ---
pt OOB up to wheelchair with one assist cause pts right foot is still slightly numb- pt to SCN to see infant
[2021-06-22] MEDS: Sertraline 50 MG Tablet PO (23:10)
[2021-06-23 00:30] VITALS: BP 102/57; PULSE 69; RESP 16; TEMP 36.6; O2SAT 97
[2021-06-23] MEDS: Ketorolac 10 MG Tablet PO ×4 (04:06→22:10)
[2021-06-23 04:08] VITALS: BP 98/62; PULSE 75; RESP 18; TEMP 36.4; O2SAT 97
[2021-06-23] MEDS: Acetaminophen 500 MG Tablet 1000 MG PO ×4 (05:19→23:27)
[2021-06-23 05:54] LABS: Hematocrit 33.4 % (37-47); Hemoglobin 10.9 g/dL (12.0-15.0); Mean Corp Hgb Conc 32.6 g/dL (32-36); Mean Corpuscular Hgb 31.3 pg (27.0-32.0); Mean Platelet Vol. 11.7 fl (6.2-12.0); Platelet Count 187 K/mm3 (150-450); RBC Distribution Width CV 14.1 % (11.6-14.6); RBC Distribution Width SD 49.1 fl (35.1-43.9); Red Blood Count 3.48 M/mm3 (4.2-5.4)
[2021-06-23 06:06] LABS: Bedside Glucose 86 mg/dL (70-110)
[2021-06-23 07:48] VITALS: BP 91/67; PULSE 75; RESP 16; TEMP 36.4
[2021-06-23] MEDS: Senna/Docusate Sodium 1 Tablet PO (11:04)
[2021-06-23 14:14] VITALS: BP 89/62; PULSE 81; RESP 16; TEMP 36.2; O2SAT 98
--- NOTE | 2021-06-23 15:40 | CASEMGMT ---
Social Work Brief Assessment Labor and Delivery Unit Patient Address: [address] [place] [address] [address], [place] [address] Phone number: [phone] Date of Referral/Notification: 06/23/2021 Time of Referral: 829 Referred By: Social work identification due to baby in special care nursery. Date of Intervention: 06/23/2021 Time of Intervention: 1540 Reason for Referral: admitted to the special care nursery; maternal history of depression and anxiety. Informant: Medical record and mother of baby (MOB) Margie Rooney History: ANTWAN is a 25-year-old female, to the father of baby (FOB) Amos Rooney. No identified safety concerns or history of abuse reported. ANTWAN is 2, para 1 now 2 after delivering baby boy Atul Rooney, on 06/22/2021. Delivery at 37 weeks gestation. Infant weighed 6 pounds 12 ounces at . Apgars 8 and 9 at 1 and 5 minutes of life respectively. ANTWAN had some gestational diabetes during and baby went into special care for hypoglycemia issues. ANTWAN has an older son at home [employer] who was born February 16[birth year] 2018. MOB endorses history of some depression after Sea. History of treatment with Zoloft. Restarted on Zoloft 6 weeks ago in an effort of being proactive. MOB mother with a history of depression. No reports regarding thoughts of suicide. Maternal drug screen negative on 12/05/2020. 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 No reported issues with reading, writing, or learning comprehension. Assessment: Met with the MOB at the baby's bedside in the special care nursery. This fiction and nonfiction prose writer also provides the social work services to the special care nursery, for continuity of care and family is admitted to the special care nursery. MOB mother had the bedside as well. No reported issues with housing, transportation, or supplies. No voiced concerns by nursing staff regarding parent-child interactions or bonding. MOB reports intent to remain on Zoloft in the timeframe. Reports to be feeling pretty good, and believe that baby is also doing well. MOB accepted information on mood and anxiety disorders, and resources for such. MOB denies any concerns at this time. MOV with appropriate affect and mood. Good eye contact. Spontaneous conversation. He handled baby appropriately and gently. Plan: MOB will discharge when medically ready. Resources have been provided. Social work will remain available to the family while the baby is in special care. No further needs requested or indicated. -HALLIE Verma, JAYY *Information documented in this assessment generated with [employer]*
[2021-06-23 21:00] VITALS: BP 108/69; PULSE 78; RESP 16; TEMP 36.1; O2SAT 96
[2021-06-23] MEDS: Sertraline 50 MG Tablet PO (22:10)
[2021-06-24 03:05] VITALS: BP 109/70; PULSE 67; RESP 16; TEMP 36.4; O2SAT 97
[2021-06-24] MEDS: Acetaminophen 500 MG Tablet 1000 MG PO ×4 (04:37→23:39)
[2021-06-24] MEDS: Ketorolac 10 MG Tablet PO ×4 (04:37→23:39)
--- NOTE | 2021-06-24 06:21 | NURSING ---
Pt notified this RN at 0510 that she took a COVID test at [facility] on Saturday due to a stuffy nose and just received an e-mail stating that it was positive. She was not tested on admission due to being COVID vaccinated. Pt states her stuffy nose went away when she took Claritin. No other symptoms. Notified credit charge authorizer, household appliance repairer, Dr. Tilley, Dr. Vaughan, and SCN. Dr. Tilley ordered a rapid COVID test. Results pending.
[2021-06-24 08:44] VITALS: BP 117/63; PULSE 88; RESP 16; TEMP 36.3; O2SAT 98
--- NOTE | 2021-06-24 12:58 | NURSING ---
vitals charted on time at 0844 initially. Charting accidentally undone and documented as wrong patient. Vitals correct for patient and re-entered.
[2021-06-24 14:25] VITALS: BP 102/61; PULSE 94; RESP 16; TEMP 36.4; O2SAT 97
[2021-06-24] MEDS: Senna/Docusate Sodium 1 Tablet PO (14:30)
--- NOTE | 2021-06-24 14:39 | PCM.PN.OB ---
Subjective Subjective Patient doing well without complaints. Tolerating PO. Ambulating and voiding without difficulty. feeding well. Denies chest pain, shortness of breath, calf pain/swelling, fevers, chills, lightheadedness. she hadn't informed staff of previous covid testign and today was called with a result. Objective Data Objective Data Vital Signs: Vital Signs Temp Pulse Resp BP Pulse Ox 97.6 F L 94 16 102/61 97 06/24/21 14:25 06/24/21 14:25 06/24/21 14:25 06/24/21 14:25 06/24/21 14:25 Oxygen Delivery Method Room Air Weight: 195 lb 15.855 oz Body Mass Index (BMI) 34.7 Intake & Output: Intake and Output for Last 24 Hours 06/22/21 06/23/21 06/24/21 23:59 23:59 23:59 Intake Total 2649.17 / 2649.17 Output Total 650 / 650 750 / 750 Balance 1998.17 -750 / -750 Lab / Micro Data Result Diagrams: 06/23/21 05:28 Labs: Laboratory Results - last 24 hr 06/24/21 07:03: COVID-19 (AMANDA) Detected Micro: Microbiology 06/24/21 05:47 Nasal Secretion SARS-CoV-2 Antigen (Rapid) - Final ROS Constitutional Constitutional: Reports systems reviewed and no addt'l complaints, except as documented Cardiovascular Cardiovascular: Reports systems reviewed and no addt'l complaints, except as documented Respiratory/Chest Respiratory/Chest: Reports systems reviewed and no addt'l complaints, except as documented Gastrointestinal Gastrointestinal: Reports systems reviewed and no addt'l complaints, except as documented Physical Exam Const alert, oriented x3 and no apparent distress HEENT Head and Scalp: atraumatic Resp normal respiratory effort GI soft to palpation and non-tender Inspection: incision intact, healing well and drainage (none) Bimanual Exam - Vag & Uterus: uterus non-tender Uterus Palpation: uterus fundus firm (below Umbilicus) Assessment & Plan (1) delivery delivered: COMMENT: SM RLTCS GDMA2 Poly 37 boy Atul (2) : QUALIFIERS: Weeks of gestation: 34 weeks Qualified Code(s): Z3A.34 - 34 weeks gestation of COMMENT: declines genetic and carrier; NL 03/02/21 (3) H/O section: COMMENT: CPD. Plan RCD. RLTCS 06/22 @ 12 (4) Supervision of other normal : COMMENT: PRR KATY: 07/13/21 Boy! Atul PC: Sea Spouse: [place] PLAN: s/p LTCS PPD # 2 1. routine post care 2. breast feeding- support given 3. rh positive 4. rubella immune patient received call today that she had had a positive covid test from saturday- repeat antigen test negative and then PCR positive. patient's only symptom is loss of taste and smell. precautions to be taken.
--- NOTE | 2021-06-24 14:48 | PCM.PN.OB ---
Subjective Subjective late entry- patient seen 06/23 at 12:50 pm Patient doing well without complaints. Tolerating PO. Ambulating and voiding without difficulty. Feeding well. Denies chest pain, shortness of breath, calf pain/swelling, fevers, chills, lightheadedness. Objective Data Objective Data Vital Signs: Vital Signs Temp Pulse Resp BP Pulse Ox 97.6 F L 94 16 102/61 97 06/24/21 14:25 06/24/21 14:25 06/24/21 14:25 06/24/21 14:25 06/24/21 14:25 Oxygen Delivery Method Room Air Weight: 195 lb 15.855 oz Body Mass Index (BMI) 34.7 Intake & Output: Intake and Output for Last 24 Hours 06/22/21 06/23/21 06/24/21 23:59 23:59 23:59 Intake Total 2649.17 / 2649.17 Output Total 650 / 650 750 / 750 Balance 1998. -750 / -750 Lab / Micro Data Result Diagrams: 06/23/21 05:28 Labs: Laboratory Results - last 24 hr 06/24/21 07:03: COVID-19 (AMANDA) Detected Micro: Microbiology 06/24/21 05:47 Nasal Secretion SARS-CoV-2 Antigen (Rapid) - Final ROS Constitutional Constitutional: Reports systems reviewed and no addt'l complaints, except as documented Cardiovascular Cardiovascular: Reports systems reviewed and no addt'l complaints, except as documented Respiratory/Chest Respiratory/Chest: Reports systems reviewed and no addt'l complaints, except as documented Gastrointestinal Gastrointestinal: Reports systems reviewed and no addt'l complaints, except as documented Physical Exam Const alert, oriented x3 and no apparent distress HEENT Head and Scalp: atraumatic Resp normal respiratory effort GI soft to palpation and non-tender Inspection: incision intact, healing well and drainage (none) Bimanual Exam - Vag & Uterus: uterus non-tender Uterus Palpation: uterus fundus firm (below Umbilicus) Assessment & Plan (1) delivery delivered: COMMENT: SM RLTCS GDMA2 Poly 37 boy Atul (2) : QUALIFIERS: Weeks of gestation: 34 weeks Qualified Code(s): Z3A.34 - 34 weeks gestation of COMMENT: declines genetic and carrier; NL 03/02/21 (3) H/O section: COMMENT: CPD. Plan RCD. RLTCS 06/22 @ 12 (4) Supervision of other normal : COMMENT: PRR KATY: 07/13/21 Boy! Atul PC: Sea Spouse: [place] PLAN: s/p LTCS PPD # 1 1. routine post care 2. breast feeding- support given 3. rh positive 4. rubella immune
[2021-06-24 20:06] VITALS: BP 109/59; PULSE 97; RESP 16; TEMP 36.7; O2SAT 98
[2021-06-24] MEDS: Sertraline 50 MG Tablet PO (23:39)
[2021-06-25 02:50] VITALS: BP 128/79; PULSE 75; RESP 18; TEMP 36.6; O2SAT 98
[2021-06-25] MEDS: Ondansetron 8 MG Tablet 4 MG PO (03:17)
[2021-06-25] MEDS: Ketorolac 10 MG Tablet PO ×3 (05:30→18:32)
[2021-06-25] MEDS: Acetaminophen 500 MG Tablet 1000 MG PO ×3 (05:31→18:32)
--- NOTE | 2021-06-25 06:04 | PCM.PN.OB ---
Subjective Subjective Patient doing well without complaints. Tolerating PO. Ambulating and voiding without difficulty. feeding well. Denies chest pain, shortness of breath, calf pain/swelling, fevers, chills, lightheadedness. Objective Data Objective Data Vital Signs: Vital Signs Temp Pulse Resp BP Pulse Ox 97.8 F 75 18 128/79 H 98 06/25/21 02:50 06/25/21 02:50 06/25/21 02:50 06/25/21 02:50 06/25/21 02:50 Oxygen Delivery Method Room Air Weight: 195 lb 15.855 oz Body Mass Index (BMI) 34.7 Intake & Output: Intake and Output for Last 24 Hours 06/23/21 06/24/21 06/25/21 23:59 23:59 23:59 Output Total 750 / 750 Balance -750 / -750 Lab / Micro Data Result Diagrams: 06/23/21 05:28 Labs: Laboratory Results - last 24 hr 06/24/21 07:03: COVID-19 (AMANDA) Detected Micro: Microbiology 06/24/21 05:47 Nasal Secretion SARS-CoV-2 Antigen (Rapid) - Final ROS Constitutional Constitutional: Reports systems reviewed and no addt'l complaints, except as documented Cardiovascular Cardiovascular: Reports systems reviewed and no addt'l complaints, except as documented Respiratory/Chest Respiratory/Chest: Reports systems reviewed and no addt'l complaints, except as documented Gastrointestinal Gastrointestinal: Reports systems reviewed and no addt'l complaints, except as documented Physical Exam Const alert, oriented x3 and no apparent distress HEENT Head and Scalp: atraumatic Resp normal respiratory effort GI soft to palpation and non-tender Inspection: incision intact, healing well and drainage (none) Bimanual Exam - Vag & Uterus: uterus non-tender Uterus Palpation: uterus fundus firm (below Umbilicus) Assessment & Plan (1) COVID-19 affecting childbirth: (2) delivery delivered: COMMENT: RLTCS GDMA2 Poly 37 boy Atul (3) Gestational diabetes: QUALIFIERS: Gestational diabetes mellitus control: diet-controlled Trimester: unspecified trimester Qualified Code(s): O24.410 - Gestational diabetes mellitus in , diet controlled COMMENT: US on 06/06 91% wt. PLAN: s/p LTCS PPD # 3 1. routine post care 2. breast feeding- support given 3. rh positive 4. rubella immune covid 19- stable mild symptoms, precautions taken.
--- NOTE | 2021-06-25 06:06 | DS.PCM_ITS ---
Providers Date of Admission: 06/22/21 Primary Care Physician: No Primary Care Phys Reason For Visit: REPEAT C SECTION Diagnosis Discharge Diagnosis (1) COVID-19 affecting childbirth: Status: Acute Code(s): O98.52 - Other viral diseases complicating childbirth; U07.1 - COVID-19 (2) delivery delivered: Status: Acute Code(s): O82 - Encounter for delivery without indication (3) Gestational diabetes: Status: Resolved Code(s): O24.419 - Gestational diabetes mellitus in , unspecified control Qualifiers: Gestational diabetes mellitus control: diet-controlled Trimester: unspecified trimester Qualified Code(s): O24.410 - Gestational diabetes mellitus in , diet controlled Medications at Discharge Home Medications promethazine 12.5 mg tablet 12.5 mg PO TID PRN #60 tab 11/22/20 multivitamin no.47-iron fum 27 mg-folate no.1 1 mg-dha 300 mg capsule cap PO 11/29/20 famotidine 20 mg tablet 20 mg PO BID #60 tab 02/27/21 blood-glucose meter #1 ea 05/02/21 lancets 30 gauge and blood glucose strips combo pack #50 ea 05/02/21 blood sugar diagnostic #10 ea 05/15/21 lancets 28 gauge #100 ea 05/15/21 metformin 500 mg tablet 1,000 mg PO BID #120 tab 05/26/21 sertraline 50 mg tablet See Rx Instructions .ROUTE .COMPLEX #30 tab 06/01/21 Hospital Course Summary of Care Provided Hospital Course: patient presented for [facility] and had an uncomplicated delivery. Postoperatively patient had return of bowel and bladder function and was ambulating well, tolerating adequate p.o., and was stable for discharge to home on postop day #3. During her stay a previously done Covid test result is positive and while the patient had no significant respiratory symptoms testing was repeated and it was still positive therefore contact precautions were taken. She was given discharge medications naproxen and Percocet. Follow-up in office in 2 weeks for incision check in 6 weeks for visit. Routine post section diet and activity instructions. Weight / BMI Weight Weight: 195 lb 15.855 oz Body Mass Index (BMI) 34.7 ABG / Lab / Microbiology Data Result Diagrams: 06/23/21 05:28 Laboratory: Laboratory Results - last 24 hr 06/24/21 07:03: COVID-19 (AMANDA) Detected Microbiology: Microbiology 06/24/21 05:47 Nasal Secretion SARS-CoV-2 Antigen (Rapid) - Final D/C Instructions Discharge Diet: No restrictions Discharge Activity: May Not Drive (for 2 weeks or while taking narcotic pain medications.), May Shower and May Take a Tub Bath (in 7 days) May shower in (days): 0 May resume sexual activity in: 4-6 weeks Weight Bearing Status: Full weight bearing Call your doctor if your incision/area has: Continuous Slow Oozing, Sudden Increased Bleeding, Increased Pain/ Swelling, Increased Redness and Foul Smelling Discharge Call your doctor if you observe: Fever of 101 or Higher and Using more than 1 pad per hour (for 2 hours) Suture Line Care: Avoid Pulling/Pushing and Avoid Pinching/Bending Cleanse incision/area with: Soap & Water and Keep Dressing Clean & Dry Please Follow Up With: Benita Tilley MD When: Call [phone] to make an appointment for an incision check in 1-2 weeks. Meaningful Use Info Meaningful Use Diagnoses (Choose all that apply): None applicable Discharge Plan Admission Admit Date/Time: 06/22/21 10:00 Attending Provider: Benita Tilley Primary Care Provider: Care PhysicianTeresa Primary Discharge Orders/Prescriptions Prescriptions: No Action PNV-DHA 27 mg iron-1 mg -300 mg capsule PO RF: 0 famotidine [Pepcid] 20 mg tablet 20 mg PO BID Qty: 60 RF: 6 (DME) lancets 28 gauge misc See Rx Instructions ea .ROUTE .MEDSUPPLY Qty: 100 RF: 0 (DME) FreeStyle Lite Strips Strip See Rx Instructions ea .ROUTE .MEDSUPPLY Qty: 10 RF: 0 promethazine 12.5 mg tablet 12.5 mg PO TID PRN (Reason: nausea and vomiting) Qty: 60 RF: 1 (DME) lancets-blood glucose strips 30 gauge combo pack See Rx Instructions .ROUTE .MEDSUPPLY Qty: 50 RF: 6 (DME) blood-glucose meter [Blood Glucose Monitoring] Kit See Rx Instructions .ROUTE .MEDSUPPLY Qty: 1 RF: 0 metformin 500 mg tablet 1,000 mg PO BID Qty: 120 RF: 3 sertraline 50 mg tablet See Rx Instructions .ROUTE .COMPLEX Qty: 30 RF: 12
[2021-06-25 08:29] VITALS: BP 99/58; PULSE 78; RESP 16; TEMP 36.5; O2SAT 98
[2021-06-25] MEDS: Senna/Docusate Sodium 1 Tablet PO (11:38)
[2021-06-25 14:37] VITALS: BP 118/50; PULSE 92; RESP 16; TEMP 36.8; O2SAT 98
== END 2021-06-25 18:55 | disposition home or self-care (01) | DRG 786 ==
PROVIDERS: Admitting Provider Obstetrics & Gynecology; Visit Provider Obstetrics & Gynecology
PROC: (CPT 59514; principal; 2021-06-22 11:45)
DX: O24.420 Gestational diabetes mellitus in childbirth, diet controlled (principal); U07.1 COVID-19; O98.52 Other viral diseases complicating childbirth; Z3A.37 37 weeks gestation of pregnancy; Z37.0 Single live birth; O40.3XX0 Polyhydramnios, third trimester, not applicable or unspecified; O36.63X0 Maternal care for excessive fetal growth, third trimester, not applicable or unspecified; M41.20 Other idiopathic scoliosis, site unspecified; O99.344 Other mental disorders complicating childbirth; F41.9 Anxiety disorder, unspecified; Z79.899 Other long term (current) drug therapy
CPT/HCPCS: 82962; 85025; 85027; 86850; 86900; 86901; 87426; 87635; 99218; J7120; U0005; G0378; J2405; U0003

== ENCOUNTER → 2021-08-08 15:43 | Outpatient (CLI) | payer BC, SELFPAY ==
[2021-08-11 16:01] LABS: HPV Reflexed? NOT INDICATED
== END ==
PROVIDERS: Referring Provider Obstetrics & Gynecology; Visit Provider Obstetrics & Gynecology
DX: Z12.4 Encounter for screening for malignant neoplasm of cervix (principal)
CPT/HCPCS: 88175; G0145

== ENCOUNTER → 2021-09-12 08:22 | Outpatient (CLI) | payer BC, SELFPAY ==
[2021-09-12 10:19] LABS: Glucose 75GTT - 30 minutes 131 mg/dL (100-160)
[2021-09-12 11:41] LABS: Glucose 75GTT - 120 minutes 118 mg/dL (70-140)
[2021-09-12 11:57] LABS: Glucose 75GTT - 60 minutes 118 mg/dL (100-160)
== END ==
PROVIDERS: Referring Provider Obstetrics & Gynecology; Visit Provider Obstetrics & Gynecology
DX: O24.410 Gestational diabetes mellitus in pregnancy, diet controlled (principal); Z3A.00 Weeks of gestation of pregnancy not specified
CPT/HCPCS: 82951; 82952

== ENCOUNTER → 2023-01-14 | Outpatient (CLI) | payer OTHER, SELFPAY | END | disposition home or self-care (01) | LOC: LABSPEC 14:19 | PROVIDERS: Referring Provider Nurse Practitioner Women's Health; Visit Provider Nurse Practitioner Women's Health | DX: M54.9 Dorsalgia, unspecified (principal) | CPT/HCPCS: 87086; 87088 ==

== ENCOUNTER → 2023-01-24 | Outpatient (CLI) | payer OTHER, SELFPAY ==
[2023-01-28 06:06] LABS: Chlamydia By Nucleic Acid AMP Negative (Negative)
[2023-01-29 11:11] LABS: Gonococcus By Nucleic Acid AMP Negative (Negative)
== END | disposition home or self-care (01) ==
LOC: LABSPEC 13:02
PROVIDERS: Referring Provider Obstetrics & Gynecology; Visit Provider Obstetrics & Gynecology
DX: O09.90 Supervision of high risk pregnancy, unspecified, unspecified trimester (principal); Z3A.00 Weeks of gestation of pregnancy not specified
CPT/HCPCS: 87491; 87591

== ENCOUNTER → 2023-04-10 | Outpatient (CLI) | payer OTHER, SELFPAY ==
--- NOTE | 2023-04-10 07:54 | US_ITS ---
STUDY: SECOND AND THIRD TRIMESTER OBSTETRICAL ULTRASOUND REASON FOR EXAM: Female, 27 years old anatomy LMP: May 22, 2023. TECHNIQUE: Transabdominal and Transvaginal TECHNICAL QUALITY: Adequate. PRIOR ULTRASOUND: None. FINDINGS: There is a single intrauterine fetus. The fetus is in a cephalic presentation. There is demonstrated cardiac activity with a heart rate of 138 bpm. There is a normal amniotic fluid volume. The largest amniotic fluid pocket measures 9.9 cm x 4.4 cm. The amniotic fluid index (STEVE) is within normal limits. The placenta is fundal in location. There are Grade 0 placental changes. The cervix measures 4.8 cm in length. The bilateral adnexal regions are normal. BIOMETRY: BPD: 4.82 cm: 20 weeks, 4 days HC: 17.98 cm: 20 weeks, 3 days AC: 14.4 cm: 19 weeks, 5 days FL: 3.19 cm: 20 weeks, 0 days CI: 78% FL/BPD: 66% FL/HC: FL/AC: 22% HC/AC: 1.25 age by current US: 20 weeks, 1 days. KATY by current US: October 27, 2023. Estimated weight: 322 grams, +/- 48 grams, 49 %. Age by LMP: 19 weeks, 6 days. KATY by LMP: August 29, 2023. ANATOMY: Gender: Indeterminant Cranium: Normal lateral ventricles. Normal choroid plexus. Normal cerebellum. Normal cisterna magna. Normal face, nose and lips. Chest: Normal 4-chamber heart. Abdomen/Pelvis: Normal diaphragm. Normal stomach. Normal abdominal wall. Normal cord insertion. Normal 3 vessel cord. Bilateral renal pelvic fullness up to 4 mm. Normal bladder. Spine: Normal cervical spine. Normal thoracic spine. Normal lumbar spine. Normal sacrum. Extremities: Normal bilateral upper extremities. Normal bilateral lower extremities. IMPRESSION: Single live intrauterine gestation with mean gestational age of 20 weeks and 1 day. Fullness of the pelves measuring 4 mm. Electronically Signed: Venu Jones MD at 9:51 EDT , STUDY: FIRST TRIMESTER OBSTETRICAL ULTRASOUND REASON FOR EXAM: Female, 27 years old. Cervical length. LMP: November 22, 2022. TECHNIQUE: Transvaginal TECHNICAL QUALITY: Adequate. PRIOR ULTRASOUND: None. FINDINGS: Cervical length measures 4.8 cm. US/OB Anatomy w/ Transvaginal IMPRESSION: Cervical length measures 4.8 cm. Electronically Signed: Venu Jones MD at 9:52 EDT ,
== END | disposition home or self-care (01) ==
LOC: OPUS 07:53
PROVIDERS: Referring Provider Obstetrics & Gynecology; Visit Provider Obstetrics & Gynecology
DX: O09.90 Supervision of high risk pregnancy, unspecified, unspecified trimester (principal); Z3A.00 Weeks of gestation of pregnancy not specified
CPT/HCPCS: 76805; 76817

== ENCOUNTER → 2023-04-19 | Outpatient (CLI) | payer OTHER, SELFPAY ==
[2023-04-19 12:34] LABS: Absolute Lymphocyte Count 1.68 X10^3/uL (0.83-4.51); Absolute Neutrophil Count 6.4 X10^3/uL (2.0-7.7); Basophil# 0.02 X10^3/uL; Basophil% 0.2 % (0-1); Eosinophil# 0.05 X10^3/uL; Eosinophils% 0.6 % (0-5); Hematocrit 38.7 % (37-47); Hemoglobin 12.9 g/dL (12.0-15.0); Lymphocyte # 1.68 X10^3/ul (0.83-4.51); Lymphocyte % 19.7 % (19-41); Mean Corp Hgb Conc 33.3 g/dL (32-36); Mean Corpuscular Hgb 32.7 pg (27.0-32.0); Mean Corpuscular Volume 98.2 fL (81-99); Mean Platelet Vol. 10.7 fl (6.2-12.0); Monocyte# 0.35 X10^3/uL; Monocyte% 4.1 % (0-10); NRBC Flagged by Analyzer 0 % (0-5); Neutrophil # 6.39 X10^3/uL (2.7-7.7); Neutrophil % 74.8 % (47-70); Platelet Count 225 K/mm3 (150-450); RBC Distribution Width CV 12.9 % (11.6-14.6); RBC Distribution Width SD 46.1 fl (35.1-43.9); Red Blood Count 3.94 M/mm3 (4.2-5.4); White Blood Count 8.5 K/mm3 (4.4-11.0)
[2023-04-19 13:43] LABS: HIV - WCH Non-Reactive (Nonreactive); Hepatitis B Surface Antigen Non-Reactive (Nonreactive); Hepatitis C Antibody Non-Reactive (Nonreactive); Rubella IgG Reactive (Nonreactive); Syphilis Antibodies Non-reactive
== END | disposition home or self-care (01) ==
LOC: LAB 12:10
PROVIDERS: PCP Internal Medicine; Referring Provider Obstetrics & Gynecology; Visit Provider Obstetrics & Gynecology
DX: O09.90 Supervision of high risk pregnancy, unspecified, unspecified trimester (principal); Z3A.00 Weeks of gestation of pregnancy not specified
CPT/HCPCS: 36415; 85025; 86703; 86762; 86780; 86803; 86850; 86900; 86901; 87340

== ENCOUNTER → 2023-05-17 | Outpatient (CLI) | payer OTHER, SELFPAY ==
[2023-05-17 11:28] LABS: Absolute Lymphocyte Count 1.19 X10^3/uL (0.83-4.51); Absolute Neutrophil Count 6.2 X10^3/uL (2.0-7.7); Basophil# 0.01 X10^3/uL; Basophil% 0.1 % (0-1); Eosinophil# 0.04 X10^3/uL; Eosinophils% 0.5 % (0-5); Hematocrit 37.1 % (37-47); Hemoglobin 12.7 g/dL (12.0-15.0); Lymphocyte # 1.19 X10^3/ul (0.83-4.51); Lymphocyte % 15.4 % (19-41); Mean Corp Hgb Conc 34.2 g/dL (32-36); Mean Corpuscular Hgb 33.2 pg (27.0-32.0); Mean Corpuscular Volume 97.1 fL (81-99); Mean Platelet Vol. 10.6 fl (6.2-12.0); Monocyte# 0.27 X10^3/uL; Monocyte% 3.5 % (0-10); NRBC Flagged by Analyzer 0 % (0-5); Neutrophil # 6.15 X10^3/uL (2.7-7.7); Neutrophil % 79.6 % (47-70); Platelet Count 229 K/mm3 (150-450); RBC Distribution Width CV 13.3 % (11.6-14.6); RBC Distribution Width SD 47.2 fl (35.1-43.9); Red Blood Count 3.82 M/mm3 (4.2-5.4); White Blood Count 7.7 K/mm3 (4.4-11.0)
[2023-05-17 11:49] LABS: Glucose Challenge Gest 1H 50g 150 mg/dL (70-140)
== END | disposition home or self-care (01) ==
LOC: LAB 10:45
PROVIDERS: Registered Nurse; PCP Internal Medicine; Referring Provider Obstetrics & Gynecology; Visit Provider Obstetrics & Gynecology
DX: O09.299 Supervision of pregnancy with other poor reproductive or obstetric history, unspecified trimester (principal); Z86.32 Personal history of gestational diabetes; Z3A.00 Weeks of gestation of pregnancy not specified
CPT/HCPCS: 36415; 82950; 85025

== ENCOUNTER → 2023-06-04 | Outpatient (CLI) | payer OTHER, SELFPAY ==
[2023-06-04 08:09] LABS: Glucose GTT-Gestation. Fasting 91 mg/dL (<105)
[2023-06-04 08:41] LABS: Glucose GTT-Gestational 1 Hr 173 mg/dL (<190)
[2023-06-04 09:40] LABS: Glucose GTT-Gestational 2 Hr 164 mg/dL (<165)
[2023-06-04 10:59] LABS: Glucose GTT-Gestational 3 Hr 99 L (<145)
== END | disposition home or self-care (01) ==
LOC: LAB 06:57
PROVIDERS: PCP Internal Medicine; Referring Provider Advanced Practice Midwife; Visit Provider Advanced Practice Midwife
DX: Z13.1 Encounter for screening for diabetes mellitus (principal)
CPT/HCPCS: 36415; 82951; 82952

== ENCOUNTER → 2023-06-14 | Outpatient (CLI) | payer OTHER, SELFPAY ==
[2023-06-14 11:30] LABS: Absolute Lymphocyte Count 1.68 X10^3/uL (0.83-4.51); Absolute Neutrophil Count 6.1 X10^3/uL (2.0-7.7); Basophil# 0.03 X10^3/uL; Basophil% 0.4 % (0-1); Eosinophil# 0.04 X10^3/uL; Eosinophils% 0.5 % (0-5); Hemoglobin 12.8 g/dL (12.0-15.0); Lymphocyte # 1.68 X10^3/ul (0.83-4.51); Mean Corp Hgb Conc 32.8 g/dL (32-36); Mean Corpuscular Volume 97.5 fL (81-99); Mean Platelet Vol. 10.7 fl (6.2-12.0); Monocyte# 0.44 X10^3/uL; Monocyte% 5.2 % (0-10); NRBC Flagged by Analyzer 0 % (0-5); Neutrophil # 6.14 X10^3/uL (2.7-7.7); Neutrophil % 72.8 % (47-70); Platelet Count 205 K/mm3 (150-450); RBC Distribution Width CV 13.5 % (11.6-14.6); RBC Distribution Width SD 47.9 fl (35.1-43.9); White Blood Count 8.4 K/mm3 (4.4-11.0)
[2023-06-14 12:33] LABS: HIV - WCH Non-Reactive (Nonreactive); Syphilis Antibodies Non-reactive
== END | disposition home or self-care (01) ==
PROVIDERS: Registered Nurse; PCP Internal Medicine; Referring Provider Obstetrics & Gynecology; Visit Provider Obstetrics & Gynecology
DX: O09.299 Supervision of pregnancy with other poor reproductive or obstetric history, unspecified trimester (principal); R30.0 Dysuria; Z86.32 Personal history of gestational diabetes; Z3A.00 Weeks of gestation of pregnancy not specified
CPT/HCPCS: 36415; 85025; 86703; 86780; 87086

== ENCOUNTER → 2023-07-03 | Outpatient (CLI) | payer OTHER, SELFPAY ==
[2023-07-11 17:07] LABS: PARVOVIRUS B19 IGG 4.7 index (0.0-0.8); PARVOVIRUS B19 IGM 0.1 index (0.0-0.8)
== END | disposition home or self-care (01) ==
LOC: PAVLAB 13:12
PROVIDERS: PCP Internal Medicine; Referring Provider Registered Nurse; Visit Provider Registered Nurse
DX: Z20.828 Contact with and (suspected) exposure to other viral communicable diseases (principal)
CPT/HCPCS: 36415; 86747

== ENCOUNTER → 2023-08-02 | Outpatient (CLI) | payer OTHER, SELFPAY | END | disposition home or self-care (01) | LOC: LABSPEC 12:02 | PROVIDERS: PCP Internal Medicine; Referring Provider Obstetrics & Gynecology; Visit Provider Obstetrics & Gynecology | DX: O09.90 Supervision of high risk pregnancy, unspecified, unspecified trimester (principal); Z3A.00 Weeks of gestation of pregnancy not specified | CPT/HCPCS: 87081 ==

== ENCOUNTER 2023-08-19 22:20 | Outpatient (CLI) | payer OTHER, SELFPAY ==
[2023-08-19 22:36] VITALS: BP 121/81; PULSE 82; PULSE 83; TEMP 36.2; O2SAT 98
[2023-08-19 22:38] VITALS: BMI 36.1
[2023-08-20] MEDS: Acetaminophen 500 MG Tablet 1000 MG PO (00:27)
[2023-08-20 00:32] VITALS: PULSE 73; O2SAT 98
[2023-08-20 01:02] LABS: Color, Urine Yellow (Yellow); Glucose, Dipstick Normal (Normal); Ketone-Dipstick Negative (Negative); Leukocyte Esterase-Dipstick Negative /ul (Negative); Nitrite-Dipstick Negative (Negative); Occult Blood-Urine Negative /ul (Negative); Protein-Dipstick 15 mg/dl (Negative); Specific Gravity, Urine 1.015 (1.002-1.030); Urine Bilirubin Dipstick Negative (Negative); Urine Clarity Clear (Clear); Urine Urobilinogen Normal (Normal); Urine pH 6.5 (5.0 - 8.0)
--- NOTE | 2023-08-20 11:19 | OB.TRI.HP_ITS ---
HPI - General General Date of Admission: 08/19/23 HPI Narrative THIERNO ZAMUDIO, is a 28 y/o @ 38 weeks 5 days who presents to L&D with contractions after intercourse tonight. She denies lof, vaginal bleeding, or dec fm. She is scheduled for a repeat section on . Maternal Data Information KATY Calculator Estimated Delivery Date Method Current WG Current Estimate 08/29/23 LMP (Certain) 38w 5d PFSH PFSH Medical History Anxiety delivery delivered COVID-19 affecting childbirth Family history of hearing loss at age younger than 7 years macrosomia Gestational diabetes Infertility PCOS (polycystic ovarian syndrome) Polyhydramnios affecting depression Home Medications multivitamin no.47-iron fum 27 mg-folate no.1 1 mg-dha 300 mg capsule (PNV-DHA) 1 cap PO DAILY 11/29/20 [History Last Taken 08/18/23 22:00 1 cap] sertraline 50 mg tablet See Rx Instructions .Route .COMPLEX #90 tabs 07/03/22 [Rx Last Taken 08/18/23 22:00 50 mg] promethazine 12.5 mg tablet 12.5 mg PO Q6H PRN nausea and vomiting #90 tabs 01/11/23 [Rx Last Taken Unknown] Allergy/AdvReac Type Severity Reaction Status Date / Time ketorolac [From Toradol] AdvReac Other Verified 08/19/23 09:57 Family History Mother Endometriosis Surgical History delivery delivered Social History adopted: No household members: family housing: house number of children: 2 current occupational status: employed current occupation: [employer] pets and animals: Yes history of recent travel: No sexually active: Yes Smoking Status: Never smoker second hand exposure: No alcohol intake: current alcohol intake frequency: holidays/special occasions only substance use type: does not use diet: Weight Watchers well-balanced diet: daily or most days caffeine: No seatbelt use: always do you feel safe at home: Yes additional social history: [place] [employer] History 3 Elective abortions Hx Para 2 Spontaneous abortions Hx # Term Pregnancies 2 Ectopic pregnancies Hx # Pregnancies Multiple births # of living children 2 Past Pregnancies Del. Date Name GA/Weeks Outcome Route Bth Weight Infant Gen Labor Lgth Anesthesia Del Locatn Provider FOB 02/16/18 Sea 37 live - full term 7 lbs. 1 oz. Male 22 hours epidural [facility] Benekos Linwood 06/23/21 Atul 37 live - full term Male 0 ep idural [facility] SHERIE Delivery Date: 02/16/18 Last Updated by: Clarisse Rogel CPD; mild uterine atony- pitocin, bimanual massage, methergine Delivery Date: 06/23/21 Last Updated by: Clarisse Rogel uncontrolled GDMA Visit Details Expected Delivery Route/Plan RLTCS Plans Covid status: [] Flu vaccine: [] Tdap vaccine: [] Rhogam: [] LARC form signed: completed Problem list reviewed and updated with the most current plan of care details and appropriate orders placed. Relevant counseling for the gestational age provided. Continue routine care and follow up unless otherwise noted in visit notes/problem list details OB Flowsheet Initial Weight: 182 lb Date -?-?-?-?-?-?-?-?-?-?-?-?- EGA Weight BP Urine Prot -?-?-?-?-?-?-?-?-?-?-?-?- Glucose FHR FuHt Pres Dilation -?-?-?-?-?-?-?-?-?-?-?-?- Effaced St Visit Note 01/24/23 -?-?-?-?-?-?-?-?-?-?-?-?- 9w 0d 182 lb 4 oz (+4 oz) 117/74 -?-?-?-?-?-?-?-?-?-?-?-?- 170 -?-?-?-?-?-?-?-?-?-?-?-?- SM- CRL 2.4 cm c ons with lMP 02/21/23 -?-?-?-?-?-?-?-?-?-?-?-?- 13w 0d 184 lb 8 oz (+2 lb 8 oz) 109/71 Negative -?-?-?-?-?-?-?-?-?-?-?-?- Negative 165 -?-?-?-?-?-?-?-?-?-?-?-?- JV- no lof, vagi nal bleeding, or cramping. CRL is 12 weeks 5 days. gct ordered 03/19/23 -?-?-?-?-?-?-?-?-?-?-?-?- 16w 5d 185 lb 8 oz (+3 lb 8 oz) 126/68 Negative -?-?-?-?-?-?-?-?-?-?-?-?- Negative 150 -?-?-?-?-?-?-?-?-?-?-?-?- KW- + FM. no lof /vb/ctx. has not done NOB labs. encouraged to do them. will call tomorrow to get US scheduled. Declines AFP. weaned self off of Zoloft, plans to start at 36 weeks for Hx PPD. repeat urine Cx next visit for UTI in early . 04/19/23 -?-?-?-?-?-?-?-?-?-?-?-?- 21w 1d 188 lb (+6 lb) 105/72 Negative -?-?-?-?-?-?-?-?-?-?-?-?- Negative 156 -?-?-?-?-?-?-?-?-?-?-?-?- JV- no lof, vagi nal bleeding or cramping. fasting glucose and 2 hr pp are normal but will need 1 hr at 28 weeks. sending for new ob labs 05/17/23 -?-?-?-?-?-?-?-?-?-?-?-?- 25w 1d 193 lb (+11 lb) 114/56 Trace -?-?-?-?-?-?-?-?-?-?-?-?- Negative 153 25 -?-?-?-?-?-?-?-?-?-?-?-?- LC-no lof/vb/ctx . good fm. obtaining glucose today. LC-no lof/vb/ctx. good fm. o btaining glucose and cbc today as she is having increased fatigue.will obtain repeat hiv/syphilis antibodies in 2 months. 06/14/23 -?-?-?-?-?-?-?-?-?-?-?-?- 29w 1d 196 lb (+14 lb) 108/73 Negative -?-?-?-?-?-?-?-?-?-?-?-?- Negative 145 29 -?-?-?-?-?-?-?-?-?-?-?-?- JV- burning with urination and has trace leuks on dip. will start macrobid. normal 3 hr. 06/28/23 -?-?-?-?-?-?-?-?-?-?-?-?- 31w 1d 201 lb 2 oz (+19 lb 2 oz) 126/70 Negative -?-?-?-?-?-?-?-?-?-?-?-?- Negative 140 31 -?-?-?-?-?-?-?-?-?-?-?-?- Lc- no vb/ctx/lo f. good fm. exposed to parvovirus on saturday. will draw titers on saturday. no fevers/rashes. Lc- no vb/ctx/lof. good fm. exposed to parvovirus on saturday. will draw titers on saturday. no fevers/rashes.lar signed today. desires tubal ligation with repeat c.s 07/12/23 -?-?-?-?-?-?-?-?-?-?-?-?- 33w 1d 200 lb 8 oz (+18 lb 8 oz) 105/60 Negative -?-?-?-?-?-?-?-?-?-?-?-?- Negative 140 33 -?-?-?-?-?-?-?-?-?-?-?-?- SM- no vb lof go od fm no regular ctx 08/02/23 -?-?-?-?-?-?-?-?-?-?-?-?- 36w 1d 201 lb 6 oz (+19 lb 6 oz) 118/68 Negative -?-?-?-?-?-?-?-?-?-?-?-?- Negative 135 37 Cephalic 0 .5 -?-?-?-?-?-?-?-?-?-?-?-?- SM- no vb lof go od fm no regular ctx gbs colledcted 08/08/23 -?-?-?-?-?-?-?-?-?-?-?-?- 37w 0d 203 lb 2 oz (+21 lb 2 oz) 104/68 Negative -?-?-?-?-?-?-?-?-?-?-?-?- Negative 150 38 Cephalic -?-?-?-?-?-?-?-?-?-?-?-?- SM- no vb lof go od fm n oregular ctx 08/19/23 -?-?-?-?-?-?-?-?-?-?-?-?- 38w 4d 204 lb 2 oz (+22 lb 2 oz) 135/82 Negative -?-?-?-?-?-?-?-?-?-?-?-?- Negative 145 39 Cephalic 2 -?-?-?-?-?-?-?-?-?-?-?-?- 50 -3 LC- no lof /vb. irreg ctx. good fm. would consider LC- no lof/vb. irreg ctx. go od fm. has c/s scheduled for 08/22. ROS Constitutional Constitutional: Reports systems reviewed and no addt'l complaints, except as documented Gastrointestinal Gastrointestinal: Denies bloating, constipation, cramping, diarrhea, nausea or vomiting Genitourinary Genitourinary: Reports other Details: Denies vaginal odor, vaginal bleeding, or vaginal discharge ; Denies difficulty urinating or flank pain NST FHR Rate Baby A Baseline: 120-130 Variability:: Moderate Accelerations:: 15 x 15 Decelerations:: None NST Reactive:: Yes FHR Category:: Category I Uterine Activity:: Started out q 3-4 minutes then decreased with rest and hydration Assessment & Plan (1) False labor after 37 completed weeks of gestation: PLAN: no cervical change after 2 hours and hydration UA normal Strip reviewed and there were some prolonged accelerations with return to baseline of 120's-130's. (2) Obesity affecting : COMMENT: BMI 32, 1 TM GCT nl, encouraged healthy weight gain. (3) H/O depression, currently : COMMENT: taking Zoloft (4) H/O section: COMMENT: CPD. RLTCS BS scheduled for 08/22 @ 7:30 with (5) Supervision of high risk , antepartum: COMMENT: PRR KATY 08/29/23 surprise PC Atul sOei, [place] (6) : QUALIFIERS: Weeks of gestation: 38 weeks Qualified Code(s): Z3A.38 - 38 weeks gestation of COMMENT: Anatomy US NL. declines carrier and4 NIPT, nl growth, needs 3 hr glucose- passed. GBS negative (7) Anxiety: COMMENT: Zoloft Charges/Coding Multi Select Codes Urinary/Genital Urinary/Genital CPT Codes: 81056-57 non-stress test Interp
== END 2023-08-20 01:25 | disposition home or self-care (01) ==
LOC: WPOUT 22:26 → WP 22:27
PROVIDERS: Obstetrics & Gynecology; PCP Internal Medicine; Referring Provider Registered Nurse; Visit Provider Registered Nurse
DX: O47.1 False labor at or after 37 completed weeks of gestation (principal); O99.213 Obesity complicating pregnancy, third trimester; O99.343 Other mental disorders complicating pregnancy, third trimester; F41.9 Anxiety disorder, unspecified; Z79.899 Other long term (current) drug therapy; Z3A.38 38 weeks gestation of pregnancy
CPT/HCPCS: 59025; 59050; 81002; 99221; G0378

== ENCOUNTER 2023-08-22 05:20 | Inpatient (IN) | payer OTHER, SELFPAY ==
[2023-08-22] VITALS (19 sets, daily range): BP systolic 106–125; BP diastolic 51–79; PULSE 67–107; RESP 12–18; TEMP 35.9–37.1; O2SAT 96–98; BMI 35.9
[2023-08-22] MEDS: Lactated Ringers 1,000 ML 999 ML IV (05:45)
[2023-08-22 05:57] LABS: Absolute Neutrophil Count 5.4 X10^3/uL (2.0-7.7); Basophil# 0.03 X10^3/uL; Basophil% 0.4 % (0-1); Eosinophil# 0.06 X10^3/uL; Eosinophils% 0.8 % (0-5); Hematocrit 36.2 % (37-47); Hemoglobin 12.2 g/dL (12.0-15.0); Lymphocyte % 23.2 % (19-41); Mean Corp Hgb Conc 33.7 g/dL (32-36); Mean Corpuscular Hgb 32.2 pg (27.0-32.0); Mean Corpuscular Volume 95.5 fL (81-99); Mean Platelet Vol. 11.6 fl (6.2-12.0); Monocyte% 5.2 % (0-10); NRBC Flagged by Analyzer 0 % (0-5); Neutrophil # 5.37 X10^3/uL (2.7-7.7); Neutrophil % 69.2 % (47-70); Platelet Count 193 K/mm3 (150-450); RBC Distribution Width SD 48.7 fl (35.1-43.9); Red Blood Count 3.79 M/mm3 (4.2-5.4); White Blood Count 7.8 K/mm3 (4.4-11.0)
[2023-08-22] MEDS: Acetaminophen 500 MG Tablet 1000 MG PO ×3 (06:00→17:50)
--- NOTE | 2023-08-22 06:23 | HP.PCM.OB_ITS ---
HPI - General General Date of Admission: 08/22/23 HPI Narrative THIERNO ZAMUDIO, is a 28 F who presents for repeat low transverse section. Maternal Data Information KATY Calculator Estimated Delivery Date Method Current WG Current Estimate 08/29/23 LMP (Certain) 39w 0d PFSH PFSH Medical History (Updated 08/22/23 @ 06:[address] Benita Tilley MD) Anxiety delivery delivered COVID-19 affecting childbirth Family history of hearing loss at age younger than 7 years macrosomia Gestational diabetes Infertility PCOS (polycystic ovarian syndrome) Polyhydramnios affecting depression Home Medications multivitamin no.47-iron fum 27 mg-folate no.1 1 mg-dha 300 mg capsule (PNV-DHA) 1 cap PO DAILY 11/29/20 [History Last Taken 08/18/23 22:00 1 cap] sertraline 50 mg tablet See Rx Instructions .Route .COMPLEX anxiety/ dpression #90 tabs 07/03/22 [Rx Last Taken 08/21/23 18:00 50mg] Allergy/AdvReac Type Severity Reaction Status Date / Time ketorolac [From Toradol] AdvReac Other Verified 08/22/23 05:38 Family History Mother Endometriosis Surgical History delivery delivered Social History adopted: No household members: family housing: house number of children: 2 current occupational status: employed current occupation: [employer] pets and animals: Yes history of recent travel: No sexually active: Yes Smoking Status: Never smoker second hand exposure: No alcohol intake: current alcohol intake frequency: holidays/special occasions only substance use type: does not use diet: Weight Watchers well-balanced diet: daily or most days caffeine: No seatbelt use: always do you feel safe at home: Yes additional social history: [employer] for [employer] History 3 Elective abortions Hx Para 2 Spontaneous abortions Hx # Term Pregnancies 2 Ectopic pregnancies Hx # Pregnancies Multiple births # of living children 2 Past Pregnancies Del. Date Name GA/Weeks Outcome Route Bth Weight Infant Gen Labor Lgth Anesthesia Del Locatn Provider FOB 02/16/18 Sea 37 live - full term 7 lbs. 1 oz. Male 22 hours epidural [facility] Aidee [place] 06/23/21 Atul 37 live - full term Male 0 ep idural [facility] SHERIE Delivery Date: 02/16/18 Last Updated by: Clarisse Rogel CPD; mild uterine atony- pitocin, bimanual massage, methergine Delivery Date: 06/23/21 Last Updated by: Clarisse Rogel uncontrolled GDMA Visit Details Expected Delivery Route/Plan RLTCS Plans Covid status: [] Flu vaccine: [] Tdap vaccine: [] Rhogam: [] LARC form signed: completed Problem list reviewed and updated with the most current plan of care details and appropriate orders placed. Relevant counseling for the gestational age provided. Continue routine care and follow up unless otherwise noted in visit notes/problem list details OB Flowsheet Initial Weight: 182 lb Date -?-?-?-?-?-?-?-?-?-?-?-?- EGA Weight BP Urine Prot -?-?-?-?-?-?-?-?-?-?-?-?- Glucose FHR FuHt Pres Dilation -?-?-?-?-?-?-?-?-?-?-?-?- Effaced St Visit Note 01/24/23 -?-?-?-?-?-?-?-?-?-?-?-?- 9w 0d 182 lb 4 oz (+4 oz) 117/74 -?-?-?-?-?-?-?-?-?-?-?-?- 170 -?-?-?-?-?-?-?-?-?-?-?-?- SM- CRL 2.4 cm c ons with lMP 02/21/23 -?-?-?-?-?-?-?-?-?-?-?-?- 13w 0d 184 lb 8 oz (+2 lb 8 oz) 109/71 Negative -?-?-?-?-?-?-?-?-?-?-?-?- Negative 165 -?-?-?-?-?-?-?-?-?-?-?-?- JV- no lof, vagi nal bleeding, or cramping. CRL is 12 weeks 5 days. gct ordered 03/19/23 -?-?-?-?-?-?-?-?-?-?-?-?- 16w 5d 185 lb 8 oz (+3 lb 8 oz) 126/68 Negative -?-?-?-?-?-?-?-?-?-?-?-?- Negative 150 -?-?-?-?-?-?-?-?-?-?-?-?- KW- + FM. no lof /vb/ctx. has not done NOB labs. encouraged to do them. will call tomorrow to get US scheduled. Declines AFP. weaned self off of Zoloft, plans to start at 36 weeks for Hx PPD. repeat urine Cx next visit for UTI in early . 04/19/23 -?-?-?-?-?-?-?-?-?-?-?-?- 21w 1d 188 lb (+6 lb) 105/72 Negative -?-?-?-?-?-?-?-?-?-?-?-?- Negative 156 -?-?-?-?-?-?-?-?-?-?-?-?- JV- no lof, vagi nal bleeding or cramping. fasting glucose and 2 hr pp are normal but will need 1 hr at 28 weeks. sending for new ob labs 05/17/23 -?-?-?-?-?-?-?-?-?-?-?-?- 25w 1d 193 lb (+11 lb) 114/56 Trace -?-?-?-?-?-?-?-?-?-?-?-?- Negative 153 25 -?-?-?-?-?-?-?-?-?-?-?-?- LC-no lof/vb/ctx . good fm. obtaining glucose today. LC-no lof/vb/ctx. good fm. o btaining glucose and cbc today as she is having increased fatigue.will obtain repeat hiv/syphilis antibodies in 2 months. 06/14/23 -?-?-?-?-?-?-?-?-?-?-?-?- 29w 1d 196 lb (+14 lb) 108/73 Negative -?-?-?-?-?-?-?-?-?-?-?-?- Negative 145 29 -?-?-?-?-?-?-?-?-?-?-?-?- JV- burning with urination and has trace leuks on dip. will start macrobid. normal 3 hr. 06/28/23 -?-?-?-?-?-?-?-?-?-?-?-?- 31w 1d 201 lb 2 oz (+19 lb 2 oz) 126/70 Negative -?-?-?-?-?-?-?-?-?-?-?-?- Negative 140 31 -?-?-?-?-?-?-?-?-?-?-?-?- Lc- no vb/ctx/lo f. good fm. exposed to parvovirus on saturday. will draw titers on saturday. no fevers/rashes. Lc- no vb/ctx/lof. good fm. exposed to parvovirus on saturday. will draw titers on saturday. no fevers/rashes.larc signed today. desires tubal ligation with repeat c.s 07/12/23 -?-?-?-?-?-?-?-?-?-?-?-?- 33w 1d 200 lb 8 oz (+18 lb 8 oz) 105/60 Negative -?-?-?-?-?-?-?-?-?-?-?-?- Negative 140 33 -?-?-?-?-?-?-?-?-?-?-?-?- SM- no vb lof go od fm no regular ctx 08/02/23 -?-?-?-?-?-?-?-?-?-?-?-?- 36w 1d 201 lb 6 oz (+19 lb 6 oz) 118/68 Negative -?-?-?-?-?-?-?-?-?-?-?-?- Negative 135 37 Cephalic 0 .5 -?-?-?-?-?-?-?-?-?-?-?-?- SM- no vb lof go od fm no regular ctx gbs colledcted 08/08/23 -?-?-?-?-?-?-?-?-?-?-?-?- 37w 0d 203 lb 2 oz (+21 lb 2 oz) 104/68 Negative -?-?-?-?-?-?-?-?-?-?-?-?- Negative 150 38 Cephalic -?-?-?-?-?-?-?-?-?-?-?-?- SM- no vb lof go od fm n oregular ctx 08/19/23 -?-?-?-?-?-?-?-?-?-?-?-?- 38w 4d 204 lb 2 oz (+22 lb 2 oz) 135/82 Negative -?-?-?-?-?-?-?-?-?-?-?-?- Negative 145 39 Cephalic 2 -?-?-?-?-?-?-?-?-?-?-?-?- 50 -3 LC- no lof /vb. irreg ctx. good fm. would consider LC- no lof/vb. irreg ctx. go od fm. has c/s scheduled for 08/22. NST FHR Rate Baby A Baseline: 130 ROS Constitutional Constitutional: Reports systems reviewed and no addt'l complaints, except as documented Eyes Eyes: Denies change in vision ENT HEENT: Reports systems reviewed and no addt'l complaints, except as documented; Denies headache(s) Cardiovascular Cardiovascular: Reports systems reviewed and no addt'l complaints, except as documented; Denies chest pain or dyspnea Respiratory/Chest Respiratory/Chest: Reports systems reviewed and no addt'l complaints, except as documented Gastrointestinal Gastrointestinal: Reports systems reviewed and no addt'l complaints, except as documented; Denies abdominal pain Genitourinary Genitourinary: Reports systems reviewed and no addt'l complaints, except as documented, contractions Details: present (irregular) and movement Details: present; Denies dysuria or genital lesions Musculoskeletal Musculoskeletal: Reports systems reviewed and no addt'l complaints, except as documented Neurologic Neurologic: Reports systems reviewed and no addt'l complaints, except as documented Endocrine Endocrinology: Reports systems reviewed and no addt'l complaints, except as documented Vital Signs Vital Signs Vital Signs: 08/22/23 05:33 08/22/23 05:33 08/22/23 05:33 Temperature 97.8 F Temperature Source Temporal Pulse Rate Respiratory Rate Blood Pressure 123/77 H Blood Pressure Mean BP Systolic 123 BP Diastolic 77 Blood Pressure Source Blood Pressure Position Blood Pressure Location Pulse Ox Oxygen Delivery Method 08/22/23 05:33 08/22/23 05:33 08/22/23 05:57 Temperature 97.9 F Temperature Source Temporal Pulse Rate 91 91 Respiratory Rate 18 Blood Pressure 123/77 H Blood Pressure Mean 92 BP Systolic BP Diastolic Blood Pressure Source Monitor Blood Pressure Position Semi-Fowlers Blood Pressure Location Right Arm Pulse Ox 97 97 Oxygen Delivery Method Room Air Weight Weight: 203 lb Body Mass Index (BMI) 35.9 Physical Exam Const alert, oriented x3, no apparent distress and healthy appearing HEENT normocephalic and moist oral mucous membranes Head and Scalp: atraumatic Neck full ROM, no lymphadenopathy, supple and thyroid normal General: trachea midline Lymph Lymphatic: no lymphadenopathy noted Chest inspection of chest normal Resp normal respiratory effort Cardio regular rate GI normal to inspection, nondistended, normoactive bowel sounds, soft to palpation and non-tender Inspection: gravid external exam normal Manual OB Exam: estimated gestational size appropriate, presentation cephalic, dilated, effaced and station Extremity normal to inspection General Extremity: Negative for edema Skin no rashes or lesions noted Neuro no focal motor deficits and deep tendon reflexes 2+ bilaterally Motor Exam: strength 5/5 throughout and clonus absent Psych mental status grossly normal Labs Labs Labs: Blood Type A POSITIVE Antibody Screen NEGATIVE Hct 36.2 % (37-47) L Hgb 12.2 g/dL (12.0-15.0) Obstetrics Ultrasound Syphilis Total Ab Non-reactive Rubella IgG Antibody Reactive (Nonreactive) Hep Bs Antigen Non-Reactive (Nonreactive) Hepatitis C Antibody Non-Reactive (Nonreactive) Hepatitis C Ab (EIA) <0.1 s/co ratio (0.0-0.9) Chlamydia DNA (AMANDA) Negative (Negative) N.gonorrhoeae DNA (AMANDA) Negative (Negative) HIV 1&2 Antibody Non-Reactive (Nonreactive) Glucose 1 Hr 50 gm 150 mg/dL (70-140) H Gest Glucose Tolerance MG/DL Group B Strep DNA Negative (Negative) Rhogam given: No Assessment & Plan (1) Anxiety: COMMENT: Zoloft (2) : QUALIFIERS: Weeks of gestation: 38 weeks Qualified Code(s): Z3A.38 - 38 weeks gestation of COMMENT: Anatomy US NL. declines carrier and4 NIPT, nl growth, needs 3 hr glucose- passed. GBS negative (3) Supervision of high risk , antepartum: COMMENT: PRR KATY 08/29/23 surprise PC Atul Osei, [place] (4) H/O section: COMMENT: CPD. RLTCS BS scheduled for 08/22 @ 7:30 with SM (5) H/O depression, currently : COMMENT: taking Zoloft (6) Obesity affecting : COMMENT: BMI 32, 1 TM GCT nl, encouraged healthy weight gain. PLAN: Plan plan RLTCS After discussing the patient's diagnosis and treatment plan options, patient wishes to proceed with surgical management. I have discussed with the patient the risks, benefits, and alternatives of the procedure which include but are not limited to risks of anesthesia, bleeding, infection, possible damage to bowel, bladder, or surrounding vasculature which could lead to additional surgery to evaluate any complications. Patient agrees to procedure and wishes to proceed. ACOG/uptodate references given for additional information regarding procedure.
--- NOTE | 2023-08-22 06:26 | OP.PCM_ITS ---
Assessment & Plan (1) delivery delivered: COMMENT: RLTCS 39 Maternal Data Information KATY Calculator Estimated Delivery Date Method Current WG Current Estimate 08/29/23 LMP (Certain) 39w 0d Final KATY Source: LMP Details Operative Information Date of Procedure: 08/22/23 Pre-Operative Diagnosis: Previous Post-Operative Diagnosis: same Indications for : Repeat Elective and Desires elective sterilization Indications Narrative: Surgeon: Benita Tilley MD Classification: Scheduled Procedure Type: low transverse (and bilateral salpingectomy) rabies inspector #1: Liz Harkins Type of Anesthesia: Spinal Special Medications: none Antibiotic Given: Ancef 2 grams IV x1 Drain: Jama to straight drain Estimated Blood Loss: 900 Fluids Replaced: crystalloid Findings Description of Procedure: Spinal anesthesia was placed without difficulty. Jama catheter was placed. The patient was placed in the dorsal supine position with leftward tilt. Patient was prepped and draped in the normal sterile fashion. Pfannenstiel skin incision was made with the scalpel previous scar excised without complication and carried through to the underlying layer of fascia with the scalpel. Fascia was nicked in the midline and the incision extended laterally. The rectus bellies were dissected off superiorly and inferiorly with out complication both sharply and bluntly. The peritoneum was entered digitally. The incision was stretched and a low transverse uterine incision was made with the scalpel. The infant's head was delivered atraumatically followed by the anterior and posterior shoulders without complication the rest of the delivered. The cord was clamped and cut and the infant was handed off to awaiting nurse. The placenta was delivered spontaneously immediately following and was noted to be intact and have a three-vessel cord. The uterus was exteriorized cleared of all clots and debris, and the incision was closed in a single layer closure using #1 Monocryl. The ovaries and fallopian tubes were noted to be within normal limits. Patient had desired sterilization and was counseled preoperatively regarding irreversibility and permanency. Therefore bilateral fallopian tubes were elevated and transected across using a LigaSure device starting proximally to distally without complication the entire fallopian tubes were removed. The uterus was returned to the maternal abdomen and gutters were cleared of all clots and debris. The peritoneum was closed with 3-0 Monocryl in a running fashion. Gloves were changed prior to fascial closure. Fascia was closed with 0 PDS in a running fashion. Subcutaneous tissue was copiously irrigated and the skin was closed with 3-0 Monocryl in a subcuticular fashion. Mepilex dressing was applied without complication. Patient was taken to recovery in stable condition. Amniotic Membrane Rupture Type: Artificial Amniotic Fluid Description: Clear Placenta Disposition: [facility] Cord Vessel Description: 3 Vessels Delayed Cord Clamping: Yes Complications Risks of Surgery Discussed w/Patient: Bleeding, Infection, Need for Future C- Sections and Injury to surrounding structure(s) including bowel and bladder Vaginal Delivery Complication Complications: None Admit VTE Documentation VTE Present on Admission: No VTE Mechan Device Prophylaxis: SCD's Multi Select Codes Urinary/Genital Urinary/Genital CPT Codes: 21166 C/S+TL and 73771 Delivery [facility]
--- NOTE | 2023-08-22 06:26 | DCINST_ITS ---
Discharge Instructions Diet Discharge Diet: No restrictions Activity Discharge Activity: May Not Drive (for 2 weeks or while taking narcotic pain medications.), May Shower and May Take a Tub Bath (in 7 days) May shower in (days): 0 May resume sexual activity in: 4-6 weeks Weight Bearing Status: Full weight bearing Lifting Restrictions: 20 pounds Dressing / Incision Call your doctor if your incision/area has: Continuous Slow Oozing, Sudden Increased Bleeding, Increased Pain/ Swelling, Increased Redness and Foul Smelling Discharge Call your doctor if you observe: Fever of 101 or Higher and Using more than 1 pad per hour (for 2 hours) Suture Line Care: Avoid Pulling/Pushing and Avoid Pinching/Bending Cleanse incision/area with: Soap & Water and Keep Dressing Clean & Dry Follow Up Care Please Follow Up With: Benita Tilley MD When: Call [phone] to make an appointment for an incision check in 1-2 weeks. Test Results: Test results from this visit will be discussed in further detail at your follow- up appointment, if applicable. Discharge Plan Admission Admit Date/Time: 08/22/23 05:20 Attending Provider: Benita Tilley Primary Care Provider: Tana Echols Discharge Orders/Prescriptions Prescriptions: New oxycodone-acetaminophen [Percocet] 5-325 mg tablet 1 tab PO Q6H PRN (Reason: pain) 7 Days Qty: 20 0RF No Action PNV-DHA 27 mg iron-1 mg -300 mg capsule 1 cap PO DAILY sertraline 50 mg tablet See Rx Instructions .ROUTE .COMPLEX Qty: 90 3RF Dose Instruction: TAKE 1 TABLET BY MOUTH EVERY DAY Rx Instructions: TAKE 1 TABLET BY MOUTH EVERY DAY Referrals / Follow Up: Tana Echols MD [Primary Care Provider] - Disposition Disposition (needs filled in before D/C Order can be placed): Home, Self Care
[2023-08-22] MEDS: Lactated Ringers 1,000 ML 150 ML IV (06:45)
[2023-08-22] MEDS: Sodium Citrate/Citric Acid 30 ML UDC PO (06:59)
[2023-08-22] MEDS: Cefazolin 2 GM in 0.9% Normal Saline (100mL Bag) 100 ML IV (07:13)
--- NOTE | 2023-08-22 07:52 | FALS_PTH ---
PATIENT: THIERNO ZAMUDIO LOC: WP U#:[id number] AGE/SX: 28/F ROOM: WP006 RE08/22/[address]: Dr. Benita Tilley MD : 1995 BED: 1 DIS: 08/23/2023 SPEC #: [id number] RECD: 08/22/23 10:03 STATUS: RHONDA ATKINS #: [id number] MYA: 08/22/23 07:[address]: Benita Tilley DEPT: SURGICAL PATHOLOGY RECD BY: Meche Ojeda ENTERED: 08/22/23 10:19 SP TYPE: FALL TUBES OTHR DR: Tana Echols MD Tissues: Fallopian tube Procedures: Surgery Specimen Level II HEADER OPERATION: Tubal ligation PRE-OP DIAGNOSIS: Sterilization TISSUE SUBMITTED: Fallopian tubes, tie on right MICROSCOPIC DIAGNOSIS Bilateral fallopian tubes, salpingectomy: Bilateral fallopian tubes, no pathologic diagnosis. Left paratubal cysts (0.5 and 0.7 cm in greatest dimension). SJ:damien 08/23/2023 MICROSCOPIC DESCRIPTION Slides are reviewed. GROSS DESCRIPTION Received in fixative is one container labeled with the patient's name and designated bilateral fallopian tubes, tie on right. The specimen consists of two fallopian tubes with an average length of 7.5 cm and has an average diameter of 1.0 cm. Both fallopian tubes have normal fimbriated ends. The fimbrial end of the left fallopian tube contains two glistening cysts ranging in size from 0.5 to 0.7 cm and containing clear fluid. Junior Network Engineer sections are submitted in two cassettes as follows: 1 - right fallopian tube, 2??left fallopian tube and paratubal cysts. / AM:damien 08/22/2023 TC:5 CPT: 59838 x2
[2023-08-22] MEDS: Ondansetron 4 MG/2 ML Vial IV (07:57)
[2023-08-22] MEDS: Oxytocin 15 Units/NS 250ml 15 UNITS/250 ML IV.SOLN 83 UNITS IV (08:48)
[2023-08-22 09:20] LABS: Syphilis Antibodies Non-reactive
[2023-08-22] MEDS: Ketorolac 30 MG/ML Syringe IV ×3 (09:25→21:06)
[2023-08-22 10:03] LABS: Pathology Specimen OB SEE PATHOLOGY REPORT
[2023-08-22] MEDS: Lactated Ringers 1,000 ML 100 ML IV (12:15)
[2023-08-22] MEDS: 0.9% Saline Lock 10 ML Syringe IV (18:48)
[2023-08-22] MEDS: Enoxaparin 40 MG/0.4 ML Syringe SC (20:24)
[2023-08-22] MEDS: Senna/Docusate Sodium 1 Tablet PO (21:07)
[2023-08-22] MEDS: Sertraline 50 MG Tablet PO (21:07)
[2023-08-23] MEDS: 0.9% Saline Lock 10 ML Syringe IV ×2 (00:17→03:14)
[2023-08-23] MEDS: Acetaminophen 500 MG Tablet 1000 MG PO ×4 (00:18→17:30)
[2023-08-23 01:27] VITALS: BP 101/62; PULSE 73; RESP 16; TEMP 36.3; O2SAT 97
[2023-08-23 03:11] VITALS: BP 109/56; PULSE 73; RESP 16; TEMP 36.6; O2SAT 97
[2023-08-23] MEDS: Ketorolac 30 MG/ML Syringe IV (03:14)
--- NOTE | 2023-08-23 07:59 | PCM.PN.OB ---
Subjective Subjective Patient is laying in bed comfortably without complaints. She states that she slept on an off during the night. Lochia is mild and pain is minimal. Her abdominal dressing is blood tinged and asking for a new one. Objective Data Objective Data Vital Signs: Vital Signs Temp Pulse Resp BP Pulse Ox O2 Del Method 97.8 F 73 16 109/56 L 97 Room Air 08/23/23 03:11 08/23/23 03:11 08/23/23 03:11 08/23/23 03:11 08/23/23 03:11 08/23/23 03:11 Oxygen Delivery Method Room Air Weight: 203 lb Body Mass Index (BMI) 35.9 Intake & Output: Intake and Output for Last 24 Hours 08/21/23 08/22/23 08/23/23 23:59 23:59 23:59 Intake Total 2368.33 / 2368.33 Output Total 1450 / 1450 300 / 300 Balance 918.33 / 918.33 -300 / -300 Lab / Micro Data 08/22/23 05:45 Labs: Laboratory Results - last 24 hr 08/22/23 05:45: Syphilis Total Ab Non-reactive ROS Constitutional Constitutional: Reports systems reviewed and no addt'l complaints, except as documented Cardiovascular Cardiovascular: Denies chest pain, dizziness, dyspnea or irregular heart rhythm Respiratory/Chest Respiratory/Chest: Denies cough, pain on inspiration or shortness of breath at rest Gastrointestinal Gastrointestinal: Denies abdominal pain, nausea or vomiting Genitourinary Genitourinary: Denies burning urination Musculoskeletal Musculoskeletal: Denies muscle cramps, muscle spasms or muscle weakness Neurologic Neurologic: Denies confusion, dizziness, headache(s) or lack of coordination Psychiatric Psychiatric: Denies anxiety, behavioral changes or depression Physical Exam HEENT normocephalic Resp normal respiratory effort and normal air movement GI soft to palpation, non-tender and non-distended Rectal Exam: other Other Details: Incision is clean, dry, and intact after dressing removed. new dressing will need applied prior to dc no CVA tenderness Extremity normal to inspection General Extremity: edema bilateral (trace ) Assessment & Plan (1) delivery delivered: COMMENT: RLTCS 39 PLAN: s/p LTCS PPD # 1 1. routine post care 2. breast feeding- support given 3. rh positive 4. rubella immune 5. needs new dressing applied to incision prior to dc. 6. dc later today if baby ready to go home, otherwise will likely dc tomorrow am. (2) Anxiety: COMMENT: Mandeep
[2023-08-23 08:50] VITALS: BP 127/71; PULSE 80; RESP 18; TEMP 36.4; O2SAT 96
[2023-08-23 09:05] VITALS: PULSE 80
[2023-08-23] MEDS: Influenza Virus Vac Quad 23-24 60 MCG/0.5 ML SYRINGE IM (12:17)
[2023-08-23] MEDS: Naproxen 500 MG Tablet PO (12:30)
--- NOTE | 2023-08-23 13:13 | CASEMGMT ---
Social Work Assessment Labor and Delivery Unit Patient Address:[address] [place] [address] [address] [place] [address] Phone number: [phone] Date of Referral: 08/22/23 Time of Referral:? 1321 Referred By: Benita Tilley Date of Intervention: ??08/23/23 Time of Intervention:? 1300 Reason for Referral:? hx of anxiety and depression, patient is taking zoloft Sw completed chart review and acknowledges social work consult due to maternal mental health history. Sw presented to bedside and introduced self to mother of baby (ANTWAN- Margie) and explained sw role during hospitalization. Sw completed psychosocial assessment and provided MOB with information regarding baby blues and depression. SDOH was triggered, but sw is not able to see what triggered for it to be completed. Sw did SDOH with MOB and no concerns expressed at this time. History obtained from: medical records and mother of baby (ANTWAN)??? Household composition: ANTWAN reports that MOB, father of baby (LENNOX Arredondo), their two older children (Sea- 5 years old and Atul- 2 years old) are currently residing with paternal grandparents. MOB states that she and TEO just purchased [address] in [place] and are going to start building a new home. No housing concerns at this time. Patient's parent/guardian status:?MOB states that parents have been together for 7 years, they met through mutual friends. NO concerns regarding domestic violence or intimate partner violence. ? Medical History: ANTWAN is 2, para 2- now 2. ANTWAN received routine care with [facility]. ANTWAN delivered baby via repeat scheduled . Baby was born at 39 weeks gestation on 08/[birth year]. Baby girl, named Nicole, was born weighing 7lb 2oz and her apgars were 8 and 8 at one and give minutes of life respectfully. Baby developed respiratory distress at delivery and required admission to [facility] Care Nursery. Baby has made medical progress and may be able to be discharged today or tomorrow. Baby will be followed by Dr. Foster for pediatrics. Educational Status:? Both parents graduated high school. ANTWAN has two degrees. TEO has some college education but no degree. ANTWAN denies any concerns with reading, learning or comprehension. 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 TEO works as a aluminum fabrication supervisor for [employer]- he is able to take three weeks off of work for paternity leave. Infant Supplies: MOB states that they have obtained all necessary baby supplies for baby, including: car seat, safe sleep space, clothes, diapers, wipes and a breast pump. Childcare/Caregiver(s):? MOB states that she will be the primary caregiver for baby during maternity leave. MOB states that TEO will also help her when he is home and not at work. When parents need assistance with childcare they have grandparents that will be able to help them. Transportation:?? Both parents drive and have reliable means of transportation. No transportation barriers at this time. Programs/Agencies Involved: ?No linkage to community resources/ agencies at this time. ?? Children Services/Legal Issues:???No history of children services involvement, no issues or concerns warranting a referral at this time. Behavioral Health Issues: ??Mental Health History:?MOB states that TEO does not have any mental health diagnoses. MOB states that she has been diagnosed with anxiety and did experience depression following the delivery of her first baby. MOB states that she was put on zoloft at that time, and then was able to go off of it. MOB states that she started back on the zoloft a couple of weeks ago just as a preventative measure for her journey this time.?? Substance Use History:?MOB denies substance use prior to and during .? Family History:?MOB denies family history of addiction and mental health. ? Drug Screens: ??No urine screens observed in chart review. Family/Social Stressors:? Although baby is admitted to special care nursery and family is residing with paternal grandparents at this time- MOB denies any concerns or stressors. ANTWAN is thankful that baby is healthy and making progress towards identified discharge goals. Support Systems: MOB states that TEO and her mom are her two biggest support people. MOB admits that if she were to be struggling with her mental health TEO would be able to recognize symptoms and would be able to help her though it. Depression/Shaken Baby/Safe Sleeping:? Sw educated MOB on sign and symptoms of baby blues and depression/ anxiety. Sw provided literature for MOB to review. Sw educated MOB on shaken baby prevention and ABCs of safe sleep. MOB expressed understanding. ASSESSMENT: MOB and baby are currently admitted following labor and delivery. Baby with respiratory distress following delivery and required admission to [facility] Care [facility]. MOB talkative and open during psychosocial assessment. MOB with natural supports in place and has obtained all necessary baby items. MOB receptive to involvement and support. ? PLAN:? MOB and baby to be discharged when medically ready. ?No other services requested or indicated. Nav Amezquita, TECHNOLOGY ENGINEER, EVENT SALES MANAGER
[2023-08-23 15:17] VITALS: BP 110/60; PULSE 74; RESP 16; TEMP 36.3; O2SAT 98
[2023-08-23 16:16] LABS: Hematocrit 32.2 % (37-47); Hemoglobin 10.8 g/dL (12.0-15.0); Mean Corp Hgb Conc 33.5 g/dL (32-36); Mean Corpuscular Hgb 32.8 pg (27.0-32.0); Mean Corpuscular Volume 97.9 fL (81-99); Mean Platelet Vol. 11.2 fl (6.2-12.0); Platelet Count 206 K/mm3 (150-450); RBC Distribution Width CV 14.3 % (11.6-14.6); Red Blood Count 3.29 M/mm3 (4.2-5.4); White Blood Count 8.9 K/mm3 (4.4-11.0)
== END 2023-08-23 19:05 | disposition home or self-care (01) | DRG 785 ==
PROVIDERS: Admitting Provider Obstetrics & Gynecology; PCP Internal Medicine; Visit Provider Obstetrics & Gynecology
PROC: 10D00Z1 Extraction of Products of Conception, Low, Open Approach (ICD-10-PCS; CPT 59514; principal; 2023-08-22 07:15)
DX: O34.211 Maternal care for low transverse scar from previous cesarean delivery (principal); F41.9 Anxiety disorder, unspecified; O99.214 Obesity complicating childbirth; O99.344 Other mental disorders complicating childbirth; Z37.0 Single live birth; Z3A.39 39 weeks gestation of pregnancy; Z79.899 Other long term (current) drug therapy; Z86.16 Personal history of COVID-19; Z87.59 Personal history of other complications of pregnancy, childbirth and the puerperium; Z23 Encounter for immunization
CPT/HCPCS: 36415; 59025; 59050; 85025; 85027; 86780; 86850; 86900; 86901; 88302; 99221; J7120; 90686; A4216; G0378; J2405

== ENCOUNTER → 2023-09-02 | Outpatient (CLI) | payer OTHER, SELFPAY | END | disposition home or self-care (01) | PROVIDERS: PCP Internal Medicine; Visit Provider Obstetrics & Gynecology | DX: T81.49XA Infection following a procedure, other surgical site, initial encounter (principal) | CPT/HCPCS: 87070; 87077; 87186; 87205 ==